=== PATIENT | male | born 1965 | race Caucasian/White ===

== ENCOUNTER 2018-06-26 21:40 | Inpatient (IN) ==
[2018-06-26] MEDS ORDERED: dilTIAZem Inj 125 MG in Sodium Chlor 0.9% Inj 100 ML IV.CONT PRN (22:08)
--- NOTE | 2018-06-26 22:57 | P.HPCC ---
History of Present Illness Service: Critical Care Medicine Primary Care Physician: No Primary Care Physician Chief Complaint: Abdominal Pain History of Present Illness: 52 yo WM with PMH of tobacco abuse, prior h/o heavy daily EtOH abuse (now in remission), polysubstance abuse (methamphetamine last snorted 06/23, occasional cocaine abuse, ongoing marijuana abuse), COPD who is transferred from [facility] due to large infrarenal abdominal aortic aneurysm. He presented to [facility] the morning of 06/26/18 complaining of abdominal pain and shortness of breath. He denies prior knowledge or imaging of AAA. He states he has experienced "bloating" and early satiety for ~3weeks. Since Saturday 06/23 , he has had abdominal pain in midabdomen, waxing and waning in severity up to . Denies nausea, vomiting, diarrhea. Pain is improved with eating, burping, or after having a BM. His last BM was 6 am this morning and was a normal formed stool with no melena or BRBR. He denies flank pain or hematuria. Complains of chronic low back pain over lumbar spine without acute change. He has had productive cough for one month, no fever or chills. He has had SOB for the last 2 days with orthopnea that has interfered with his sleep. Denies CP. He was noted to be in A fib RVR with rate in the 130s at outside hospital and was started on cardizem drip and is now in rate-controlled atrial fib. He was also treated for COPD exacerbation with nebs and Solumedrol and states his SOB has resolved. He denies prior cardiac history and has never had ischemic workup. Ultrasound at outside hospital showed normal liver, spleen, pancreas and kidneys. No gallstones or CBD dilatation. There is a large abdominal aneurysm 6.[address] abdomen and pelvis demonstrated infrarenal aneurysm 7.2 x 7.5 x 10 cm with mural thrombus. Serial troponins at outside hospital were 0.04 x3 (their lab upper limit of normal is 0.03). I do not see a formal echo report but there is discussion of low normal left systolic function, mild biatrial enlargement, mild to moderate MR, mild TR with moderate pulmonary hypertension. Sodium 140, potassium 4.7, bicarb 26, BUN 17, creatinine 0.77, glucose 120. Magnesium 1.9. AST and ALT are mildly elevated at 44, alk phos 133. Total bilirubin is normal. Coags are normal with INR 1.1. Urine drug screen is positive for amphetamines and THC. White blood cell count is 9.6, hemoglobin 14.7, platelet 206. Chest x-ray demonstrates cardiomegaly but no infiltrate. Inpatient Certification: I certify that the inpatient services were ordered in accordance with Medicare regulations governing the order. This includes certification that hospital inpatient services are reasonable and necessary and in the case of services not specified as inpatient-only under 42 CFR 419.22(n), that they are appropriately provided as inpatient services in accordance to with the 2-midnight benchmark under 43 CFR 412.3(e) Review of Systems All other systems reviewed negative except as stated in HPI [facility] - History History Provided By: Patient - Medical History Medical History: Medical History (Last Updated 06/27/18 @ 00:48 by Gail Bailey MD) COPD (chronic obstructive pulmonary disease) History of ETOH abuse Marijuana abuse Methamphetamine abuse Overweight (BMI 25.0-29.9) Tobacco abuse - Surgical History Surgical History: Surgical History (Last Updated 06/27/18 @ 00:48 by Gail Bailey MD) No history of previous surgery - Family History Family History: Family History (Last Updated 06/27/18 @ 00:49 by Gail Bailey MD) Other No significant family history - Tobacco History Tobacco Use In Past 30 Days: Yes Smoking Status: Current every day smoker Tobacco Type: Cigarettes Packs Per Day: 1 years: 40 - Alcohol History How Often Do You Have a Drink Containing Alcohol: 2 to 4 times a month - Substance Use History Substance History: Active Abuse - Substance Use Type Methamphetamine Type: crystal Status: Active Route Used: Inhalation Reason for Use: Increase Energy Level Marijuana Status: Active Medications and Allergies Active Medications: Active Medications Diltiazem HCl 125 mg/ Sodium (Chloride) 125 mls @ 5 mls/hr IV.CONT TITRATE PRN ; Protocol PRN Reason: Per Protocol Allergies Allergy/AdvReac Type Severity Reaction Status Date / Time No Known Allergies Allergy Unverified 06/26/18 22:08 Results - Labs CBC & Chem 7: 06/27/18 01:00 06/27/18 01:00 Exam Vital signs: Intake & Output 10/01/0806/26/18 06/27/18 06:59 18:59 06:59 Weight 91.4 kg Other: Weight On Admission 91.4 kg Narrative: GENERAL: Well-nourished, well-developed patient laying in ISC bed. SKIN: Warm and dry, well perfused. ~1cm ulceration right upper thigh, pt reports welding burn. Granulating with no exudate. HEAD: Atraumatic. Normocephalic. EYES: Pupils equal and round, 3mm reactive. No scleral icterus. No injection or drainage. ENT: No nasal bleeding or discharge. Mucous membranes pink and moist. NECK: Trachea midline. No JVD. CARDIOVASCULAR: irregularly irregular, unable to appreciate murmur, rub, gallop. RESPIRATORY: No accessory muscle use. Clear to auscultation. Breath sounds equal bilaterally. On 2 L NC. GASTROINTESTINAL: Abdomen soft, tender midline with pulsation, also tender mid right and left abdomen. No rebound or guarding. No CVAT. MUSCULOSKELETAL: Extremities without clubbing, cyanosis, or edema. Palpable and equal femoral, DP, [employer] pulses bilaterally. NEUROLOGICAL: Awake and alert, oriented x3. No obvious cranial nerve deficits. Motor grossly within normal limits. Normal speech. Caprini VTE Risk Assessment Caprini VTE Risk Assessment: Moderate/High Risk (score >= 2) Caprini Risk Assessment Model: Point Value = 1 Point Value = 2 Point Value = 3 Point Value = 5 Age 41-60 Minor surgery BMI > 25 kg/m2 Swollen legs Varicose veins or History of unexplained or recurrent spontaneous Oral contraceptives or hormone replacement Sepsis (< 1 month) Serious lung disease, including pneumonia (< 1 month) Abnormal pulmonary function Acute myocardial infarction Congestive heart failure (< 1 month) History of inflammatory bowel disease Medical patient at bed rest Age 61-74 Arthroscopic surgery Major open surgery (> 45 min) Laparoscopic surgery (> 45 min) Malignancy Confined to bed (> 72 hours) Immobilizing plaster cast Central venous access Age >= 75 History of VTE Family history of VTE Factor V Leiden Prothrombin [id number] Lupus anticoagulant Anticardiolipin antibodies Elevated serum homocysteine Heparin-induced thrombocytopenia Other congenital or acquired thrombophilia Stroke (< 1 month) Elective arthroplasty Hip, pelvis, or leg fracture Acute spinal cord injury (< 1 month) Prophylaxis Regimen: Total Risk Factor Score Risk Level Prophylaxis Regimen 0-1 Low Early ambulation 2 Moderate Order ONE of the following: *Sequential Compression Device (SCD) *Heparin 5000 units SQ BID 3-4 Higher Order ONE of the following medications: *Heparin 5000 units SQ TID *Enoxaparin/Lovenox 40 mg SQ daily (WT < 150 kg, CrCl > 30 mL/min) *Enoxaparin/Lovenox 30 mg SQ daily (WT < 150 kg, CrCl > 10-29 mL/min) *Enoxaparin/Lovenox 30 mg SQ BID (WT < 150 kg, CrCl > 30 mL/min) AND/OR *Sequential Compression Device (SCD) 5 or more Highest Order ONE of the following medications: *Heparin 5000 units SQ TID (Preferred with Epidurals) *Enoxaparin/Lovenox 40 mg SQ daily (WT < 150 kg, CrCl > 30 mL/min) *Enoxaparin/Lovenox 30 mg SQ daily (WT < 150 kg, CrCl > 10-29 mL/min) *Enoxaparin/Lovenox 30 mg SQ BID (WT < 150 kg, CrCl > 30 mL/min) AND *Sequential Compression Device (SCD) Assessment and Plan - Assessment and Plan Plan: NEURO: Pain, acute and chronic Lortab prn pain. Morphine prn breakthrough pain. Polysubstance abuse Hx EtOH abuse, no longer daily drinker Thiamine 100 mg daily. RESP: COPD Tobacco abuse Patient states COPD was diagnosed during a work physical. Never had PFTs. Tobacco and polysubstance cessation discussed in detail. Duoneb q4 hours. Albuterol q2 hours. Continue Solumedrol, reduce dose to 40 mg IV q12. CV: Atrial fibrillation, now rate controlled. Infrarenal abdominal aortic aneurysm, 7.2 x 7.5 x 10 cm with mural thrombus. No leak Atrial fibrillation currently rate controlled, cardizem 10 mg/hr. Labetalol prn SBP >130. Lovenox 80 mg subcut q12 ordered at outside hospital was placed on hold pending surgical evaluation (did not receive, will continue to hold) Obtain f/u troponin and obtain formal 2D Echo. Vascular surgery consultation for recommendations and management of aneurysm repair. GI: NPO at midnight. FEN/RENAL: Voiding. Monitor I/O. Monitor electrolytes and replace as indicated per ICU electrolyte protocol. Received IV contrast 10/4. 0.9 NaCl 50/hr. ID: Received ceftriaxone and azithromycin at outside facility. He has no infiltrate, fever or leukocytosis and is symptomatically improved following nebs and steroids so will hold of on further abx at this time. HEME: Obtain CBC. PT/INR normal outside hospital. Type and crossed 4 units. ENDO: Euglycemic. F/u TSH/free T4. PROPH: SCD for DVT prophylaxis, hold pharmacologic dvt prophylaxis pending evaluation. Protonix 40 mg IV daily for stress ulcer prophylaxis. ACCESS: PIV. Full Code Level 3 H and P
[2018-06-26] MEDS ORDERED: Bisacodyl 10 MG Supp RECTAL PRN (23:11)
[2018-06-26] MEDS ORDERED: Morphine Inj 4 MG/ML Vial IV.PUSH PRN (23:11)
[2018-06-26] MEDS ORDERED: Magnesium Oxide 400 MG Tablet PO PRN (23:19)
[2018-06-26] MEDS ORDERED: Magnesium Sulfate Inj 2 GM in Sodium Chlor 0.9% Inj 96 ML IV.SIG PRN (23:19)
[2018-06-26] MEDS ORDERED: Sodium Phosphate Inj 30 MMOL in Sodium Chlor 0.9% Inj 250 ML IV.SIG PRN (23:19)
[2018-06-26] MEDS ORDERED: Magnesium Sulfate Inj 4 GM in Sodium Chlor 0.9% Inj 92 ML IV.SIG PRN (23:19)
[2018-06-26] MEDS ORDERED: Potassium Chlor 40 mEq Premix 40 MEQ/100 ML PIGGYBACK IV.SIG PRN ×2 (23:19)
[2018-06-26] MEDS ORDERED: Potassium Chlor 20 mEq Premix 20 MEQ/100 ML PIGGYBACK IV.SIG PRN ×2 (23:19)
[2018-06-26] MEDS ORDERED: Potassium Chloride 25 MEQ Effervescent Tablet PO PRN (23:19)
[2018-06-26] MEDS ORDERED: Potassium Phosphate 500 MG Soluble Tablet PO PRN ×2 (23:19)
[2018-06-26] MEDS ORDERED: Potassium Phosphate Inj 30 MMOL in Sodium Chlor 0.9% Inj 250 ML IV.SIG PRN (23:19)
[2018-06-26] MEDS ORDERED: Labetalol HCl Inj 100 MG/20 ML Vial IV.PUSH PRN (23:38)
[2018-06-27 01:14] LABS: Hematocrit 42.5 % (39.0-51.0); Hemoglobin 14.5 gm/dL (13.0-17.0); Mean Corpuscular HGB Conc 34.2 % (32.0-36.0); Mean Corpuscular Hemoglobin 28.5 pg (27.0-34.0); Mean Corpuscular Volume 83.5 fL (80.0-100.0); Mean Platelet Volume 7.8 fL (7.0-11.0); Platelet Count 203 th/mm3 (150-450); Red Blood Count 5.09 mil/mm3 (4.50-5.90); Red Cell Distribution Width 14.2 % (11.6-17.2); White Blood Count 8.2 th/mm3 (4.0-11.0)
[2018-06-27 01:49] LABS: Alanine Aminotransferase 54 U/L (12-78); Albumin 3.1 g/dL (3.4-5.0); Anion Gap 11 meq/L (5-15); Aspartate Aminotransferase 30 U/L (15-37); Blood Urea Nitrogen 18 mg/dL (7-18); Calcium 8.4 mg/dL (8.5-10.1); Carbon Dioxide 25.2 meq/L (21.0-32.0); Chloride 104 meq/L (98-107); Glomerular Filtration Rate 77 mL/min (>89); Glucose,Random 245 mg/dL (74-106); Magnesium 1.8 mg/dL (1.5-2.5); Phosphorus 2.7 mg/dL (2.5-4.9); Sodium 140 meq/L (136-145)
[2018-06-27 01:59] LABS: Alkaline Phosphatase 132 U/L (45-117); Troponin I 0.49 ng/mL (0.02-0.05)
[2018-06-27 02:07] LABS: Creatine Kinase 78 U/L (39-308)
[2018-06-27] MEDS ORDERED: Dextrose 50% in Water 50 ML Vial IV.PUSH PRN (03:20)
[2018-06-27 03:50] LABS: Activated Partial Thrombo Time 27.2 sec (24.3-30.1); INR 1.2 Ratio; Prothrombin Time 11.7 sec (9.8-11.6)
[2018-06-27] MEDS ORDERED: Chlorhexidine Gluconate 2% 1 Pack (2 Cloths) TOPICAL PRN (04:00)
[2018-06-27 04:02] LABS: Chol/HDL Ratio 5.14 Ratio; Free T4 (Free Thyroxine) 1.02 ng/dL (0.76-1.46); HDL Cholesterol 34.4 mg/dL (40.0-60.0); Troponin I 0.43 ng/mL (0.02-0.05)
--- NOTE | 2018-06-27 04:30 | XR ---
EXAM DATE: 06/27/2018 12:00 AM EDT AGE/SEX: 52 years / Male INDICATIONS: Respiratory disease. CLINICAL DATA: This is the patient's initial encounter. Patient reports that signs and symptoms have been present for 1 day and indicates a pain score of 0/10. MEDICAL/SURGICAL HISTORY: None. None. COMPARISON: No prior exams available for comparison. FINDINGS: The cardiac silhouette is enlarged in transverse diameter. The lungs are free of acute parenchymal op acity. No effusions are identified. CONCLUSION: Cardiomegaly. No acute pulmonary disease. Electronically signed by: Kimo Medel MD 06/27/2018 4:29 AM EDT
[2018-06-27] MEDS: Chlorhexidine Gluconate 2% 1 Pack (2 Cloths) TOPICAL SCH (06:28)
--- NOTE | 2018-06-27 06:41 | P.PNCC ---
Subjective Subjective Remarks/Hospital Course: 52 yo WM with PMH of tobacco abuse, prior h/o heavy daily EtOH abuse (now in remission), polysubstance abuse (methamphetamine last snorted 06/23, occasional cocaine abuse, ongoing marijuana abuse), COPD who is transferred from [facility] due to large infrarenal abdominal aortic aneurysm. He presented to [facility] the morning of 06/26/18 complaining of abdominal pain and shortness of breath. He denies prior knowledge or imaging of AAA. He states he has experienced "bloating" and early satiety for ~3weeks. Since Saturday 06/23 , he has had abdominal pain in midabdomen, waxing and waning in severity up to . Denies nausea, vomiting, diarrhea. Pain is improved with eating, burping, or after having a BM. His last BM was 6 am this morning and was a normal formed stool with no melena or BRBR. He denies flank pain or hematuria. Complains of chronic low back pain over lumbar spine without acute change. He has had productive cough for one month, no fever or chills. He has had SOB for the last 2 days with orthopnea that has interfered with his sleep. Denies CP. He was noted to be in A fib RVR with rate in the 130s at outside hospital and was started on cardizem drip and is now in rate-controlled atrial fib. He was also treated for COPD exacerbation with nebs and Solumedrol and states his SOB has resolved. He denies prior cardiac history and has never had ischemic workup. Ultrasound at outside hospital showed normal liver, spleen, pancreas and kidneys. No gallstones or CBD dilatation. There is a large abdominal aneurysm 6.[address] abdomen and pelvis demonstrated infrarenal aneurysm 7.2 x 7.5 x 10 cm with mural thrombus. Serial troponins at outside hospital were 0.04 x3 (their lab upper limit of normal is 0.03). I do not see a formal echo report but there is discussion of low normal left systolic function, mild biatrial enlargement, mild to moderate MR, mild TR with moderate pulmonary hypertension. Sodium 140, potassium 4.7, bicarb 26, BUN 17, creatinine 0.77, glucose 120. Magnesium 1.9. AST and ALT are mildly elevated at 44, alk phos 133. Total bilirubin is normal. Coags are normal with INR 1.1. Urine drug screen is positive for amphetamines and THC. White blood cell count is 9.6, hemoglobin 14.7, platelet 206. Chest x-ray demonstrates cardiomegaly but no infiltrate. SUBJECTIVE: 06/27: Currently resting in bed in no acute distress on 2 L nasal cannula. Heart rate controlled on diltiazem drip at 10 mg an hour. Denies chest pain, shortness of breath or abdominal pain. Currently has a nicotine patch on from his outside facility. Requesting diet to be advanced. Objective Vital Signs / I&O: Vital Signs 06/27/18 00:00 06/27/18 01:00 06/27/18 02:00 Temperature 98.9 F Pulse Rate 96 H 88 88 Respiratory Rate 26 H 20 20 Blood Pressure 119/78 118/74 118/79 Pulse Oximetry 93 L 94 L 92 L 06/27/18 03:00 06/27/18 04:00 06/27/18 04:15 Temperature 98.9 F Pulse Rate 87 87 72 Respiratory Rate 20 18 18 Blood Pressure 121/75 128/76 Pulse Oximetry 93 L 98 95 06/27/18 05:00 06/27/18 06:00 Temperature Pulse Rate 76 80 Respiratory Rate 18 18 Blood Pressure 130/75 116/73 Pulse Oximetry Intake & Output 06/26/18 06/26/18 06/27/18 06:59 18:59 06:59 Intake Total 240 / 240 Output Total 600 / 600 Balance -360 / -360 Weight 91.4 kg Intake: Oral 240 / 240 Output: Urine 600 / 600 Other: Weight On Admission 91.4 kg Result Diagrams: 06/27/18 01:00 06/27/18 01:00 Imaging: Chest X-Ray 06/27/18 00:00 CONCLUSION: Cardiomegaly. No acute pulmonary disease. Objective Remarks: GENERAL: This 52-year-old male currently resting in bed in no acute distress SKIN: Warm and dry. Noted old less than 1 inch circumference granulation burn right thigh without erythema or exudate HEAD: Atraumatic. Normocephalic. EYES: Pupils equal and round about 2 mm bilaterally and reactive. No scleral icterus. No injection or drainage. ENT: No nasal bleeding or discharge. Mucous membranes pink and moist. NECK: Trachea midline. No JVD. CARDIOVASCULAR: IRR. S1, S2 no S4. Without murmur RESPIRATORY: No accessory muscle use. Diminished breath sounds. Positive end expiratory wheeze. No rhonchi or rales GASTROINTESTINAL: Abdomen soft, nondistended. Vaguely tender to palpation mid epigastric region. Umbilicus midline. Questionable palpable. MUSCULOSKELETAL: Extremities without peripheral edema. No obvious deformities. Dorsalis pedis and posterior tibialis are palpable bilaterally NEUROLOGICAL: Awake and alert. No obvious cranial nerve deficits. Motor grossly within normal limits. Five out of 5 muscle strength in the arms and legs. Normal speech. PSYCHIATRIC: Appropriate mood and affect; insight and judgment normal. Assessment and Plan - Assessment and Plan Plan: NEURO/PSYCH: Pain- acute and chronic Hx EtOH abuse, no longer daily drinker but does drink once a month. THC use History of recent methamphetamine use Acetaminophen 650 mg by mouth every 6 hours as needed fever Hydrocodone/acetaminophen 5/324 tablet every 4 hours as needed pain 1 through 5 Morphine sulfate 2 mg IV every 2 hours as needed pain 6 - 10 Thiamine 100 mg daily. Multivitamin 1 tablet daily. Folic acid 1 mg daily See below for education on cessation of methamphetamine and THC and tobacco and alcohol RESP: COPD -likely diagnosis Ongoing tobacco abuse Patient states COPD was diagnosed during a work physical. No formal diagnosis by poorly function test. Will order today Nasal cannula to maintain saturations greater than equal to 92% Incentive spirometry while awake Follow-up on chest x-ray. Albuterol/ipratropium aerosols every 4 hours with albuterol aerosols every 2 hours as needed for dyspnea Methylprednisolone succinate 40 mg IV every 12 hours Tobacco and polysubstance cessation discussed in detail again this a.m. 06/27. CV: New onset atrial fibrillation, now rate controlled. Asymptomatic infrarenal abdominal aortic aneurysm, 7.2 x 7.5 x 10 cm with lumen 4 x 3.4 cm with mural thrombus. No leak Elevated troponin likely type II demand ischemia Hyperlipidemia with elevated LDL Moderate pulmonary hypertension Moderate MR Atrial fibrillation currently rate controlled, diltiazem 10 mg/hr. Labetalol and enalaprilat prn SBP >130. Enoxaparin 80 mg subcut q12 ordered at outside hospital was placed on hold pending surgical evaluation (did not receive, will continue to hold) Will discuss with vascular surgery heparin drip with mural thrombus to prevent distal embolization and underlying atrial fibrillation and aspirin in light of elevated troponin Obtain f/u troponin -trending downward and obtain formal 2D Echo -report from outside hospital ejection fraction 50% with moderate MR and moderate pulmonary hypertension but no official documentation. Vascular surgery consultation for recommendations and management of aneurysm repair. Cardiology consultation for recommendations and management. Initiate on pravastatin 40 mg by mouth daily. GI: Hypoalbuminemia Elevated total bilirubin Elevated alkaline phosphatase NPO except for medication Pantoprazole for GI prophylaxis Docusate sodium/senna 1 tablet twice daily for bowel regimen Check lipase and amylase. Liver function tests within normal limits Bilirubin components to be checked as well FEN/RENAL/: Voiding. No indication for Curtis catheter Accurate I's and O's Monitor urine output Currently on normal saline at 50 cc an hour while n.p.o. Replace electrolytes as clinically indicated per ICU likely protocol ID: Received ceftriaxone and azithromycin at outside facility. Currently off all antibiotics. Check sputum sample and influenza a and B HEME: Monitor CBC daily. Follow trends. Type and crossed 4 units. ENDO: Subclinical hypothyroidism Hyperglycemia Hemoglobin A1c pending Continue sliding scale insulin aspart insulin every 6 hours low protocol to maintain euglycemia Low TSH, Nl T4, and T3. Reassess in 4-6 weeks. PROPH: SCD for DVT prophylaxis, hold pharmacologic dvt prophylaxis pending evaluation. Pantoprazole 40 mg daily for stress ulcer prophylaxis. ACCESS: PIV. His arterial line Full Code Level 2 followup. Code Status: Full code
[2018-06-27] MEDS ORDERED: Magnesium Sulfate Inj 2 GM in Sodium Chlor 0.9% Inj 96 ML IV.SIG ONE (07:00)
[2018-06-27] MEDS: Sod Chloride 0.9% Inj 1,000 ML IV.CONT SCH ×2 (07:00→23:43)
[2018-06-27] MEDS ORDERED: Morphine Inj 4 MG/ML Vial IV.PUSH PRN (07:31)
[2018-06-27] MEDS ORDERED: Insulin NovoLOG Aspart Correctional Sugar Inj SQ SCH (08:00)
[2018-06-27] MEDS ORDERED: Pantoprazole Inj 40 MG Vial IV.PUSH SCH (09:00)
[2018-06-27] MEDS: Thiamine Inj 100 MG in Sodium Chlor 0.9% Inj 100 ML IV.SIG SCH ×2 (09:07→23:43)
[2018-06-27] MEDS: MethylPREDNISolone Sod Succinate Inj 40 MG/ML Vial IV.PUSH SCH ×2 (09:08→20:10)
[2018-06-27] MEDS: Senna/Docusate Sodium 8.6/50 MG Tablet PO SCH ×2 (09:08→20:10)
[2018-06-27] MEDS: Folic Acid 1 MG Tablet PO SCH (09:08)
--- NOTE | 2018-06-27 09:09 | MB ---
cc: Sebastian Kenneyd MD DATE: 06/27/2018 REASON FOR CONSULTATION: Atrial fibrillation. HISTORY OF PRESENT ILLNESS: The patient is a pleasant 52-year-old white male with no major past medical history, history of tobacco and polysubstance abuse, who was transferred from [facility] for further treatment of a very large infrarenal abdominal aortic aneurysm, which apparently measured [address]. The patient initially presented to [facility] with a 2-week history of early satiety and bloating. Over the last few days, he has had a very uncomfortable feeling, unable to lie still at night. Four days ago, he developed progressively worsening shortness of breath with mild to moderate exertion. During this time, he also had possible orthopnea. He denies pedal edema, chest pain, lightheadedness, syncope, near-syncope, palpitations. PAST MEDICAL HISTORY: None. CURRENT CARDIAC MEDICATIONS: Cardizem drip, pravastatin ALLERGIES: NO KNOWN DRUG ALLERGIES. FAMILY HISTORY: There is no significant family history of early myocardial infarction. SOCIAL HISTORY: The patient smokes about a pack of cigarettes per day. He has a prior history of alcohol abuse. He occasionally abuses crystal meth, marijuana, cocaine. REVIEW OF SYSTEMS: As in the history of present illness, otherwise negative or noncontributory. He also denies headache, visual changes, melena, bright red blood per rectum, fevers. Occasionally, he has been experiencing dyspepsia. PHYSICAL EXAMINATION: VITAL SIGNS: His blood pressure is 116/73 with a pulse of 80, respirations 18. GENERAL: He is a well-developed, well-nourished white male, in no acute distress. NECK: Jugular venous pressure is normal. Carotid pulses are 2+ bilaterally and without bruits. CHEST: Reveals clear lung díaz. CARDIAC: He has an irregularly irregular rhythm without S3 or murmur. ABDOMEN: He has a soft, nontender abdomen. Bowel sounds are present. There is no definite hepatosplenomegaly. EXTREMITIES: Reveals no clubbing, cyanosis or edema. DIAGNOSTIC DATA: Chest x-ray shows no acute disease. Laboratory data includes normal CBC, normal basic metabolic profile, except for random glucose of 245. Troponin 0.49. CK 78. Total cholesterol 177, LDL 129, HDL 34, triglycerides 70. IMPRESSION: Newly diagnosed atrial fibrillation in this 52-year-old white male with previously no major past medical history, now transferred from [facility] for further treatment of a very large infrarenal abdominal aortic aneurysm. At this time, he remains in atrial fibrillation with controlled heart rate on intravenous Cardizem. Overall, there is no definite evidence for acute coronary syndrome or pulmonary embolism. Slight elevation in troponin may be due to the dysrhythmia. CK is negative for myocardial infarction. EKG is pending. He has had no angina symptoms. With respect to his thromboembolic risk, it appears to be overall low. Reportedly, his left ventricular function was within normal limits by echo done at [facility]. RECOMMENDATIONS: 1. Continue intravenous Cardizem, consider changing to oral administration. 2. When possible, would initiate aspirin therapy. 3. Await vascular surgery consultation from Dr. Hanna. MD CHERISE Murray/lilian , 08:07 AM , 08:15 AM [id number]
--- NOTE | 2018-06-27 10:40 | ECHRPT ---
Indication: AFIB AND AFLUTTER CONCLUSIONS Normal left ventricular size. Wall thickness is normal. Normal wall motion. The left ventricular systolic function is normal with an estimated ejection fraction in the range of 50-55%. The left atrial size is mildly dilated. Trace mitral valve regurgitation. There is mild tricuspid valve regurgitation. The estimated pulmonary arterial pressure is 40 mmHg. BP: / HR: Rhythm: MEASUREMENTS (Male / Female) Normal Values Technical Quality: 2D ECHO LV Diastolic Diameter PLAX 4.8 cm 4.2 - 5.9 / 3.9 - 5.3 cm LV Systolic Diameter PLAX 3.9 cm IVS Diastolic Thickness 1.1 cm 0.6 - 1.0 / 0.6 - 0.9 cm LVPW Diastolic Thickness 1.0 cm 0.6 - 1.0 / 0.6 - 0.9 cm LV Relative Wall Thickness 0.5 RV Internal Dim ED PLAX 2.8 cm LVOT Diameter 1.9 cm Aortic Root Diameter 2.9 cm LA Systolic Diameter LX 3.4 cm 3.0 - 4.0 / 2.7 - 3.8 cm LV Ejection Fraction MOD BP 41.3 % >= 55 % LV Ejection Fraction MOD 4C 47.0 % LV Ejection Fraction 4C AL 50.4 % LV Ejection Fraction MOD 2C 36.4 % LV Ejection Fraction 2C AL 39.1 % M-MODE Aortic Root Diameter MM 3.0 cm LA Systolic Diameter MM 4.6 cm LA Ao Ratio MM 1.5 AV Cusp Separation MM 1.1 cm DOPPLER AV Peak Velocity 114.5 cm/s AV Peak Gradient 5.2 mmHg LVOT Peak Velocity 95.3 cm/s LVOT Peak Gradient 3.6 mmHg AV Area Cont Eq pk 2.4 cm Mitral E Point Velocity 113.0 cm/s LV E' Lateral Velocity 9.1 cm/s Mitral E to LV E' Lateral Ratio 12.5 LV E' Septal Velocity 8.5 cm/s Mitral E to LV E' Septal Ratio 13.3 TR Peak Velocity 274.0 cm/s TR Peak Gradient 30.0 mmHg Right Atrial Pressure 10.0 mmHg Pulmonary Artery Systolic Pressu 40.0 mmHg Right Ventricular Systolic Press 40.0 mmHg PV Peak Velocity 93.6 cm/s PV Peak Gradient 3.5 mmHg FINDINGS LEFT VENTRICLE Normal left ventricular size. Wall thickness is normal. Normal wall motion. The left ventricular systolic function is normal with an estimated ejection fraction in the range of 50-55%. RIGHT VENTRICLE Normal right ventricular size and systolic function. LEFT ATRIUM The left atrial size is mildly dilated. RIGHT ATRIUM The right atrial size is normal. ATRIAL SEPTUM Normal atrial septal thickness without atrial level shunting by limited color doppler interrogation. AORTA The aortic root and proximal ascending aorta are normal in size on limited imaging. MITRAL VALVE Trace mitral valve regurgitation. AORTIC VALVE Trileaflet aortic valve. No aortic valve stenosis or regurgitation. TRICUSPID VALVE There is mild tricuspid valve regurgitation. The estimated pulmonary arterial pressure is 40 mmHg. PULMONARY VALVE No pulmonary valve regurgitation or stenosis. VESSELS The inferior vena cava is normal in size. PERICARDIUM No pericardial effusion. Sebastian Kennedy MD (Electronically Signed) Final Date:27 June 2018 10:39
[2018-06-27] MEDS: Budesonide-Formoterol 160/4.5 MCG 6 GM Inhaler INH SCH ×2 (11:08→20:10)
[2018-06-27] MEDS: Insulin NovoLOG Aspart Correctional Sugar Inj SQ SCH ×3 (11:44→23:44)
--- NOTE | 2018-06-27 11:47 | ECG ---
Date Performed: 06/27/2018 Time Performed: 03:52:34 PTAGE: 52 years EKG: Atrial fibrillation Incomplete RBBB Septal and lateral ST-T changes are nonspecific Abnorma l ECG NO PREVIOUS TRACING DOCTOR: Kimo Clarke Interpretating Date/Time 06/27/2018 11:44:54
--- NOTE | 2018-06-27 11:58 | ECG ---
Date Performed: 06/27/2018 Time Performed: 08:02:38 PTAGE: 52 years EKG: Atrial fibrillation Incomplete RBBB Inferior/lateral T wave changes are nonspecific Abnorma l ECG PREVIOUS TRACING : 06/27/2018 03.52 Since the previous tracing, no significant change noted DOCTOR: Kimo Clarke Interpretating Date/Time 06/27/2018 11:57:48
[2018-06-27] MEDS: Labetalol HCl Inj 100 MG/20 ML Vial IV.PUSH PRN (12:08)
--- NOTE | 2018-06-27 13:43 | P.CONVS ---
History of Present Illness Service: Vascular Surgery Consult date: 06/27/18 Requesting Physician: Papo Ballesteros Primary Care Provider: No Primary Care Physician Chief Complaint: Abdominal Pain History of Present Illness: 52 yo male with abdominal pain and SOB, presented to OSH and found to be in a- fib/RVR. Routine work-up included CT that showed a 7cm AAA about which he had no prior knowledge. At present, he endorses mild abdominal pain with deep palpation. + hungry. Review of Systems Constitutional: Denies chills, Denies fever(s) Cardiovascular: Reports shortness of breath, Denies chest pain Respiratory: Reports shortness of breath PMFSH - History History Provided By: Patient - Medical History Medical History: Medical History (Last Reviewed 06/27/18 @ 13:39 by Brian Hanna MD) COPD (chronic obstructive pulmonary disease) History of ETOH abuse Marijuana abuse Methamphetamine abuse Overweight (BMI 25.0-29.9) Tobacco abuse - Surgical History Surgical History: Surgical History (Last Reviewed 06/27/18 @ 13:39 by Brian Hanna MD) No history of previous surgery - Family History Family History: Family History (Last Updated 06/27/18 @ 00:49 by Gail Bailey MD) Other No significant family history - Tobacco History Second Hand Smoke Exposure: Yes Tobacco Use In Past 30 Days: Yes Smoking Status: Current every day smoker Tobacco Type: Cigarettes Packs Per Day: 1 years: 40 - Alcohol History How Often Do You Have a Drink Containing Alcohol: 2 to 4 times a month - Substance Use History Substance History: Active Abuse - Substance Use Type Methamphetamine Type: crystal Status: Active Route Used: Inhalation Reason for Use: Increase Energy Level Marijuana Type: amphetamines/marijuana Status: Active Reason for Use: Calm Down 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 Medications and Allergies Active Medications: Active Medications Acetaminophen (Tylenol) 650 mg PO Q6H PRN PRN Reason: Fever >100f Hydrocodone Bitart/Acetaminophen ([place] 5/325) 1 tab PO Q4H PRN PRN Reason: Pain 1 through 5 Al Hydroxide/Mg Hydroxide (Milk Of Magnesia Liq) 30 ml PO Q12H PRN PRN Reason: Mild Constipation Albuterol (Albuterol Neb (Prn)) 2.5 mg NEB Q2HR NEB PRN PRN Reason: SHORTNESS OF BREATH/WHEEZING Albuterol (Duoneb Neb ([facility])) 1 ampul NEB Q4HR NEB [facility] Last Admin: 06/27/18 12:21 Dose: Not Given Bacitracin (Baciguent Oint) 1 applicatio TOPICAL BID [facility] Last Admin: 06/27/18 09:07 Dose: 1 applicatio Bisacodyl (Dulcolax Supp) 10 mg RECTAL DAILY PRN PRN Reason: SEVERE CONSITIPATION Budesonide/Formoterol Fumarate (Symbicort 160/4.5 Mcg Inh) 2 puff INH BID [facility] Last Admin: 06/27/18 11:08 Dose: Not Given Chlorhexidine Gluconate (Chlorhexidine 2% Cloth) 3 pack TOPICAL DAILY@0400 [facility] Stop: 07/02/18 03:59 Last Admin: 06/27/18 06:28 Dose: Not Given Chlorhexidine Gluconate (Chlorhexidine 2% Cloth) 3 pack TOPICAL DAILY@0400 PRN PRN Reason: Extra cloth needed Stop: 07/02/18 03:59 Dextrose (D50w Vial) 50 ml IV.PUSH UNSCH PRN PRN Reason: PER HYPOGLYCEMIA PROTOCOL Enalaprilat (Vasotec Inj) 2.5 mg IV.PUSH Q6H PRN PRN Reason: SBP > 130 Folic Acid (Folic Acid) 1 mg PO DAILY [facility] Last Admin: 06/27/18 09:08 Dose: 1 mg Glucagon (Glucagon Inj) 1 mg OTHER PRN PRN PRN Reason: for Hypoglycemia Protocol Diltiazem HCl 125 mg/ Sodium (Chloride) 125 mls @ 5 mls/hr IV.CONT TITRATE PRN ; Protocol PRN Reason: Per Protocol Last Admin: 06/27/18 11:22 Dose: 10 mg/hr, 10 mls/hr Sodium Chloride (Ns Inj) 1,000 mls @ 50 mls/hr IV.CONT .Q20H [facility] Last Admin: 06/27/18 07:00 Dose: 50 mls/hr Magnesium Sulfate 2 gm/ Sodium (Chloride) 100 mls @ 50 mls/hr IV.SIG UNSCH PRN PRN Reason: For Magnesium 1.2 - 1.6 mg/dL Potassium Chloride (Kcl 20 Meq Premix Inj) 20 meq in 100 mls @ 50 mls/hr IV.SIG Q2H PRN PRN Reason: For Potassium 3.3 - 3.5 mEq/L Potassium Chloride (Kcl 40 Meq Premix Inj) 40 meq in 100 mls @ 25 mls/hr IV.SIG UNSCH PRN PRN Reason: For Potassium 3.3 - 3.5 mEq/L Potassium Chloride (Kcl 20 Meq Premix Inj) 20 meq in 100 mls @ 50 mls/hr IV.SIG Q2H PRN PRN Reason: For Potassium 2.8 - 3.2 mEq/L Potassium Phosphate 30 mmol/ (Sodium Chloride) 260 mls @ 42 mls/hr IV.SIG UNSCH PRN PRN Reason: SEE LABEL COMMENTS Sodium Phosphate 30 mmol/ (Sodium Chloride) 260 mls @ 42 mls/hr IV.SIG UNSCH PRN PRN Reason: For Phosphorus < 2.5 mg/dL Potassium Chloride (Kcl 40 Meq Premix Inj) 40 meq in 100 mls @ 25 mls/hr IV.SIG Q2H PRN PRN Reason: For Potassium 2.8 - 3.2 mEq/L Magnesium Sulfate 4 gm/ Sodium (Chloride) 100 mls @ 50 mls/hr IV.SIG UNSCH PRN PRN Reason: For Magnesium 0.9 - 1.1 mg/dL Thiamine HCl 100 mg/ Sodium (Chloride) 101 mls @ 100 mls/hr IV.SIG Q24H [facility] Last Infusion: 06/27/18 11:01 Dose: Infused Insulin Aspart (Novolog Insulin Correctional Sugar Inj) 0 unit SQ Q6HR [facility]; Protocol Last Admin: 06/27/18 11:44 Dose: Not Given Labetalol HCl (Trandate Inj) 10 mg IV.PUSH Q1H PRN PRN Reason: SBP >130 Last Admin: 06/27/18 12:08 Dose: 10 mg Lactulose (Lactulose Liq) 30 ml PO DAILY PRN PRN Reason: SEVERE CONSITIPATION Magnesium Oxide (Mag-Ox) 800 mg PO UNSCH PRN PRN Reason: For Magnesium 1.2 - 1.6 mg/dL Methylprednisolone Sodium Succinate (Solumedrol Inj) 40 mg IV.PUSH Q12HR [facility] Last Admin: 06/27/18 09:08 Dose: 40 mg Morphine Sulfate (Morphine Inj) 2 mg IV.PUSH Q2H PRN PRN Reason: Pain 6 through 10 Multivitamins (Theragran) 1 tab PO DAILY [facility] Last Admin: 06/27/18 09:08 Dose: 1 tab Ondansetron HCl (Zofran Inj) 4 mg IV.PUSH Q6H PRN PRN Reason: NAUSEA OR VOMITING Pantoprazole Sodium (Protonix) 40 mg PO DAILY [facility] Last Admin: 06/27/18 09:08 Dose: 40 mg Potassium Bicarb/Potassium Chloride (K-Lyte Cl Eff) 50 meq PO UNSCH PRN PRN Reason: For Potassium 3.3 - 3.5 mEq/L Potassium Phosphate (K-Phos Original) 2,000 mg PO Q4H PRN PRN Reason: Phosphorus Less Than 2.5 mg/dL Potassium Phosphate (K-Phos Original) 2,000 mg PO UNSCH PRN PRN Reason: SEE LABEL COMMENTS Pravastatin Sodium (Pravachol) 40 mg PO DAILY [facility] Last Admin: 06/27/18 09:08 Dose: 40 mg Senna/Docusate Sodium (Tish-Colace) 1 tab PO BID [facility] Last Admin: 06/27/18 09:08 Dose: 1 tab Sennosides (Senokot) 17.2 mg PO Q12H PRN PRN Reason: Moderate Constipation Sodium Chloride (Ns Flush) 2 ml IV.FLUSH BID [facility] Last Admin: 06/27/18 09:08 Dose: 2 ml Sodium Chloride (Ns Flush) 2 ml IV.FLUSH PRN PRN PRN Reason: FLUSH AFTER USING IV ACCESS Allergies Allergy/AdvReac Type Severity Reaction Status Date / Time No Known Allergies Allergy Unverified 06/26/18 22:08 Physical Exam Vital Signs / I&O: Vital Signs 06/27/18 00:00 06/27/18 01:00 06/27/18 02:00 Temperature 98.9 F Pulse Rate 96 H 88 88 Respiratory Rate 26 H 20 20 Blood Pressure 119/78 118/74 118/79 Pulse Oximetry 93 L 94 L 92 L 06/27/18 03:00 06/27/18 04:00 06/27/18 04:15 Temperature 98.9 F Pulse Rate 87 87 72 Respiratory Rate 20 18 18 Blood Pressure 121/75 128/76 Pulse Oximetry 93 L 98 95 06/27/18 05:00 06/27/18 06:00 06/27/18 08:00 Temperature 98.1 F Pulse Rate 76 80 90 Respiratory Rate 18 18 18 Blood Pressure 130/75 116/73 110/67 Pulse Oximetry 94 L 06/27/18 08:23 06/27/18 08:25 06/27/18 12:00 Temperature 98.2 F Pulse Rate 74 85 Respiratory Rate 18 17 Blood Pressure 144/71 H Pulse Oximetry 94 L 95 Intake & Output 06/26/18 06/27/18 06/27/18 18:59 06:59 18:59 Intake Total 240 / 240 201 / 201 Output Total 600 / 600 Balance -360 / -360 201 / 201 Weight 91.4 kg Intake: IV 201 / 201 Magnesium Sulfate Inj 2 GM In 100 / 100 NS Inj 96 ML @ 50 mls/hr IV.SIG ONCE ONE Rx#:[id number] Thiamine Inj 100 MG In NS Inj 101 / 101 100 ML @ 100 mls/hr IV.SIG Q24H [facility] Rx#:[id number] Oral 240 / 240 Output: Urine 600 / 600 Other: Weight On Admission 91.4 kg Neuro: alert, sitting in bed HEENT: NC/AT Neck: no JVD Heart: no M Lungs: clear Abdomen: nontender to palpation Vascular: palp femoral, popliteal Laboratory Results - last 24 hr 06/26/18 06/27/18 06/27/18 22:00 01:00 01:00 WBC 8.2 RBC 5.09 Hgb 14.5 Hct 42.5 MCV 83.5 MCH 28.5 MCHC 34.2 RDW 14.2 Plt Count 203 MPV 7.8 PT INR APTT Sodium 140 Potassium 4.0 Chloride 104 Carbon Dioxide 25.2 Anion Gap 11 BUN 18 Creatinine 1.01 Estimated GFR 77 L Random Glucose 245 H Lactic Acid Calcium 8.4 L Phosphorus 2.7 Magnesium 1.8 Total Bilirubin 1.2 H Direct Bilirubin Indirect Bilirubin AST 30 ALT 54 Alkaline Phosphatase 132 H Total Creatine Kinase 78 Troponin I 0.49 H Total Protein 7.0 Albumin 3.1 L Triglycerides Cholesterol LDL Cholesterol, Calc HDL Cholesterol Cholesterol/HDL Ratio Amylase Lipase TSH Less than 0.005 L Free T4 Free T3 Nasal Screen MRSA (PCR) Not detected Blood Type Blood Type Recheck Antibody Screen 06/27/18 06/27/18 06/27/18 01:00 01:00 01:00 WBC RBC Hgb Hct MCV MCH MCHC RDW Plt Count MPV PT INR APTT Sodium Potassium Chloride Carbon Dioxide Anion Gap BUN Creatinine Estimated GFR Random Glucose Lactic Acid 1.7 Calcium Phosphorus Magnesium Total Bilirubin Direct Bilirubin Indirect Bilirubin AST ALT Alkaline Phosphatase Total Creatine Kinase Troponin I Total Protein Albumin Triglycerides Cholesterol LDL Cholesterol, Calc HDL Cholesterol Cholesterol/HDL Ratio Amylase Lipase TSH Free T4 Free T3 2.74 Nasal Screen MRSA (PCR) Blood Type A Positive Blood Type Recheck Required Antibody Screen Negative 06/27/18 06/27/18 06/27/18 03:22 03:22 10:54 WBC RBC Hgb Hct MCV MCH MCHC RDW Plt Count MPV PT 11.7 H INR 1.2 APTT 27.2 Sodium Potassium Chloride Carbon Dioxide Anion Gap BUN Creatinine Estimated GFR Random Glucose Lactic Acid Calcium Phosphorus Magnesium Total Bilirubin 0.6 Direct Bilirubin 0.2 Indirect Bilirubin 0.4 AST ALT Alkaline Phosphatase Total Creatine Kinase Troponin I 0.43 H Total Protein Albumin Triglycerides 70 Cholesterol 177 LDL Cholesterol, Calc 129 H HDL Cholesterol 34.4 L Cholesterol/HDL Ratio 5.14 Amylase 36 Lipase 54 L TSH Free T4 1.02 Free T3 Nasal Screen MRSA (PCR) Blood Type Blood Type Recheck Antibody Screen Impressions Chest X-Ray 06/27/18 00:00 CONCLUSION: Cardiomegaly. No acute pulmonary disease. 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 Need repair semi-electively, and I don't think he is endovascular candidate. Could have open juxtarenal repair. 1. Needs cardiac w/u completed for new onset afib 2. Will likely repair this hospitalization 3. ok to eat, OOB, and have prophy hep 4. 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
[2018-06-27] MEDS: Heparin - SQ 10,000 UNITS/ML Vial SQ SCH ×2 (14:26→23:42)
[2018-06-27 15:50] LABS: Hemoglobin A1c 6.1 % (4.3-6.0)
[2018-06-27] MEDS: dilTIAZem 60 MG Tablet PO SCH ×2 (17:15→20:10)
[2018-06-28] MEDS: Labetalol HCl Inj 100 MG/20 ML Vial IV.PUSH PRN ×4 (00:22→11:52)
[2018-06-28 02:52] LABS: Baso # (Auto) 0.1 th/mm3 (0.0-0.2); Baso % (Auto) 0.7 % (0.0-2.0); Hematocrit 39.6 % (39.0-51.0); Hemoglobin 13.2 gm/dL (13.0-17.0); Lymph # (Auto) 0.6 th/mm3 (1.0-4.8); Lymph % (Auto) 3.6 % (9.0-44.0); Mean Corpuscular HGB Conc 33.3 % (32.0-36.0); Mean Corpuscular Hemoglobin 28.4 pg (27.0-34.0); Mean Corpuscular Volume 85.2 fL (80.0-100.0); Mean Platelet Volume 7.6 fL (7.0-11.0); Mono # (Auto) 0.3 th/mm3 (0.0-0.9); Mono % (Auto) 1.6 % (0.0-8.0); Neut # (Auto) 16.7 th/mm3 (1.8-7.7); Neut % (Auto) 94.1 % (16.0-70.0); Platelet Count 191 th/mm3 (150-450); Red Blood Count 4.64 mil/mm3 (4.50-5.90); Red Cell Distribution Width 14.5 % (11.6-17.2); White Blood Count 17.8 th/mm3 (4.0-11.0)
[2018-06-28 03:18] LABS: Alanine Aminotransferase 39 U/L (12-78); Albumin 2.9 g/dL (3.4-5.0); Anion Gap 9 meq/L (5-15); Aspartate Aminotransferase 15 U/L (15-37); Blood Urea Nitrogen 23 mg/dL (7-18); Calcium 8.1 mg/dL (8.5-10.1); Carbon Dioxide 24.3 meq/L (21.0-32.0); Chloride 107 meq/L (98-107); Glomerular Filtration Rate Greater Than 89 mL/min (>89); Glucose,Random 153 mg/dL (74-106); Magnesium 2.2 mg/dL (1.5-2.5); Phosphorus 3.4 mg/dL (2.5-4.9); Potassium 4.4 meq/L (3.5-5.1); Sodium 140 meq/L (136-145)
[2018-06-28 03:21] LABS: Alkaline Phosphatase 123 U/L (45-117); Total Protein 6.4 g/dL (6.4-8.2)
[2018-06-28] MEDS: Chlorhexidine Gluconate 2% 1 Pack (2 Cloths) TOPICAL SCH (04:21)
[2018-06-28] MEDS: Heparin - SQ 10,000 UNITS/ML Vial SQ SCH ×2 (06:03→16:54)
[2018-06-28] MEDS: Insulin NovoLOG Aspart Correctional Sugar Inj SQ SCH ×3 (06:03→17:57)
[2018-06-28] MEDS: MethylPREDNISolone Sod Succinate Inj 40 MG/ML Vial IV.PUSH SCH ×2 (08:48→20:28)
[2018-06-28] MEDS: Folic Acid 1 MG Tablet PO SCH (08:48)
[2018-06-28] MEDS: Senna/Docusate Sodium 8.6/50 MG Tablet PO SCH ×2 (08:48→20:25)
[2018-06-28] MEDS: dilTIAZem 60 MG Tablet PO SCH ×4 (08:50→20:28)
--- NOTE | 2018-06-28 10:00 | P.PNVS ---
Subjective Subjective/Hospital Course: PT resting in bed, comfortable, no distress and no abdominal or back pain Objective Vital Signs / I&O: Vital Signs 06/27/18 12:00 06/27/18 18:00 06/27/18 19:00 Temperature 98.2 F Pulse Rate 85 96 H Respiratory Rate 17 18 Blood Pressure 144/71 H 118/58 L 117/72 Pulse Oximetry 95 94 L 06/27/18 20:00 06/27/18 20:42 06/27/18 21:00 Temperature 98.6 F Pulse Rate 90 85 98 H Respiratory Rate 20 16 22 Blood Pressure 126/59 L 103/59 L Pulse Oximetry 93 L 98 97 06/27/18 22:00 06/27/18 23:00 06/28/18 00:00 Temperature 98.5 F Pulse Rate 66 87 77 Respiratory Rate 20 18 20 Blood Pressure 115/69 122/64 112/59 L Pulse Oximetry 92 L 100 94 L 06/28/18 01:00 06/28/18 02:00 06/28/18 03:00 Temperature Pulse Rate 78 79 50 L Respiratory Rate 16 16 12 Blood Pressure 114/62 101/66 103/74 Pulse Oximetry 93 L 93 L 94 L 06/28/18 04:00 06/28/18 04:01 06/28/18 05:00 Temperature 98.8 F Pulse Rate 74 70 72 Respiratory Rate 14 16 16 Blood Pressure 115/72 126/68 Pulse Oximetry 97 96 06/28/18 06:00 06/28/18 07:59 06/28/18 08:00 Temperature 98.3 F Pulse Rate 76 91 H 80 Respiratory Rate 16 16 18 Blood Pressure 130/75 128/72 Pulse Oximetry 96 97 97 Intake & Output 06/27/18 06/28/18 06/28/18 18:59 06:59 18:59 Intake Total 276 / 276 1581 / 1581 Output Total 1000 / 1000 400 / 400 Balance -724 / -724 1181 / 1181 Weight 94.1 kg Intake: IV 276 / 276 1101 / 1101 NS Inj 1,000 ML @ 50 mls/hr IV. 1000 / 1000 CONT .Q20H [facility] Rx#:[id number] Cardizem Inj 125 MG In NS Inj 75 / 75 100 ML @ 5 MG/HR 5 mls/hr IV. CONT TITRATE PRN Rx#:[id number] Magnesium Sulfate Inj 2 GM In 100 / 100 NS Inj 96 ML @ 50 mls/hr IV.SIG ONCE ONE Rx#:[id number] Thiamine Inj 100 MG In NS Inj 101 / 101 101 / 101 100 ML @ 100 mls/hr IV.SIG Q24H [facility] Rx#:[id number] Oral 480 / 480 Output: Urine 1000 / 1000 400 / 400 Other: Date of Last Bowel Movement 06/26/18 06/26/18 06/26/18 # Bowel Movements 0 Physical Exam: no abdominal tenderness no overall distress Laboratory Results - last 24 hr 06/27/18 06/27/18 06/27/18 01:00 10:54 17:17 WBC RBC Hgb Hct MCV MCH MCHC RDW Plt Count MPV Neut % (Auto) Lymph % (Auto) [place] % (Auto) Eos % (Auto) Baso % (Auto) Neut # (Auto) Lymph # (Auto) [place] # (Auto) Eos # (Auto) Baso # (Auto) WBC Differential Differential Comment APTT Sodium Potassium Chloride Carbon Dioxide Anion Gap BUN Creatinine Estimated GFR POC Glucose 238 H Random Glucose Hemoglobin A1c 6.1 H Calcium Phosphorus Magnesium Total Bilirubin 0.6 Direct Bilirubin 0.2 Indirect Bilirubin 0.4 AST ALT Alkaline Phosphatase Total Protein Albumin Amylase 36 Lipase 54 L 06/27/18 06/27/18 06/28/18 20:47 23:39 02:32 WBC 17.8 H RBC 4.64 Hgb 13.2 Hct 39.6 MCV 85.2 MCH 28.4 MCHC 33.3 RDW 14.5 Plt Count 191 MPV 7.6 Neut % (Auto) 94.1 H Lymph % (Auto) 3.6 L [place] % (Auto) 1.6 Eos % (Auto) 0.0 Baso % (Auto) 0.7 Neut # (Auto) 16.7 H Lymph # (Auto) 0.6 L [place] # (Auto) 0.3 Eos # (Auto) 0.0 Baso # (Auto) 0.1 WBC Differential . Differential Comment Auto diff final APTT Sodium Potassium Chloride Carbon Dioxide Anion Gap BUN Creatinine Estimated GFR POC Glucose 178 H 143 H Random Glucose Hemoglobin A1c Calcium Phosphorus Magnesium Total Bilirubin Direct Bilirubin Indirect Bilirubin AST ALT Alkaline Phosphatase Total Protein Albumin Amylase Lipase 06/28/18 06/28/18 06/28/18 02:32 02:32 05:17 WBC RBC Hgb Hct MCV MCH MCHC RDW Plt Count MPV Neut % (Auto) Lymph % (Auto) [place] % (Auto) Eos % (Auto) Baso % (Auto) Neut # (Auto) Lymph # (Auto) [place] # (Auto) Eos # (Auto) Baso # (Auto) WBC Differential Differential Comment APTT 25.2 Sodium 140 Potassium 4.4 Chloride 107 Carbon Dioxide 24.3 Anion Gap 9 BUN 23 H Creatinine 0.86 Estimated GFR Greater than 89 POC Glucose 152 H Random Glucose 153 H Hemoglobin A1c Calcium 8.1 L Phosphorus 3.4 Magnesium 2.2 Total Bilirubin 0.4 Direct Bilirubin Indirect Bilirubin AST 15 ALT 39 Alkaline Phosphatase 123 H Total Protein 6.4 D Albumin 2.9 L Amylase Lipase Microbiology 06/27/18 17:15 Gram Stain - Final Sputum - Expectorated Sputum 06/27/18 14:35 Influenza Types A,B Antigen - Final Nasal Wash Negative for FLU A and B antigen Infection due to influenza A or B cannot be ruled out since the antigen present in the sample may be below the detection limit of the test. Impressions Chest X-Ray 06/27/18 00:00 CONCLUSION: Cardiomegaly. No acute pulmonary disease. 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 Need repair semi-electively. Could have open juxtarenal repair. EF preserved on TTE - no additional cardiac work-up needed 1. should have ASA and statin pre-op 2. Will plan repair likely within the week - ok to go home and come back from my standpoint. 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 [phone]
--- NOTE | 2018-06-28 10:05 | P.PNCA ---
Subjective Interval history: No CP, dyspnea, dizziness, palpitations, abdominal pain. Medications and Allergies Active Medications: Active Medications Acetaminophen (Tylenol) 650 mg PO Q6H PRN PRN Reason: Fever >100f Hydrocodone Bitart/Acetaminophen ([place] 5/325) 1 tab PO Q4H PRN PRN Reason: Pain 1 through 5 Al Hydroxide/Mg Hydroxide (Milk Of Magnmeseret Liq) 30 ml PO Q12H PRN PRN Reason: Mild Constipation Albuterol (Albuterol Neb (Prn)) 2.5 mg NEB Q2HR NEB PRN PRN Reason: SHORTNESS OF BREATH/WHEEZING Albuterol (Duoneb Neb ([facility])) 1 ampul NEB Q4HR NEB [facility] Last Admin: 06/28/18 07:58 Dose: 1 ampul Aspirin (Aspirin Chew) 81 mg PO DAILY [facility] Last Admin: 06/28/18 08:48 Dose: 81 mg Bacitracin (Baciguent Oint) 1 applicatio TOPICAL BID [facility] Last Admin: 06/28/18 08:48 Dose: 1 applicatio Bisacodyl (Dulcolax Supp) 10 mg RECTAL DAILY PRN PRN Reason: SEVERE CONSITIPATION Budesonide/Formoterol Fumarate (Symbicort 160/4.5 Mcg Inh) 2 puff INH BID [facility] Last Admin: 06/27/18 20:10 Dose: 2 puff Chlorhexidine Gluconate (Chlorhexidine 2% Cloth) 3 pack TOPICAL DAILY@0400 [facility] Stop: 07/02/18 03:59 Last Admin: 06/28/18 04:21 Dose: 3 pack Chlorhexidine Gluconate (Chlorhexidine 2% Cloth) 3 pack TOPICAL DAILY@0400 PRN PRN Reason: Extra cloth needed Stop: 07/02/18 03:59 Dextrose (D50w Vial) 50 ml IV.PUSH UNSCH PRN PRN Reason: PER HYPOGLYCEMIA PROTOCOL Diltiazem HCl (Cardizem) 60 mg PO QID [facility] Last Admin: 06/28/18 08:50 Dose: 60 mg Enalaprilat (Vasotec Inj) 2.5 mg IV.PUSH Q6H PRN PRN Reason: SBP > 130 Folic Acid (Folic Acid) 1 mg PO DAILY [facility] Last Admin: 06/28/18 08:48 Dose: 1 mg Glucagon (Glucagon Inj) 1 mg OTHER PRN PRN PRN Reason: for Hypoglycemia Protocol Heparin Sodium (Porcine) (Heparin Inj) 5,000 units SQ Q8H [facility] Last Admin: 06/28/18 06:03 Dose: 5,000 units Sodium Chloride (Ns Inj) 1,000 mls @ 50 mls/hr IV.CONT .Q20H [facility] Last Admin: 06/27/18 23:43 Dose: 50 mls/hr Magnesium Sulfate 2 gm/ Sodium (Chloride) 100 mls @ 50 mls/hr IV.SIG UNSCH PRN PRN Reason: For Magnesium 1.2 - 1.6 mg/dL Potassium Chloride (Kcl 20 Meq Premix Inj) 20 meq in 100 mls @ 50 mls/hr IV.SIG Q2H PRN PRN Reason: For Potassium 3.3 - 3.5 mEq/L Potassium Chloride (Kcl 40 Meq Premix Inj) 40 meq in 100 mls @ 25 mls/hr IV.SIG UNSCH PRN PRN Reason: For Potassium 3.3 - 3.5 mEq/L Potassium Chloride (Kcl 20 Meq Premix Inj) 20 meq in 100 mls @ 50 mls/hr IV.SIG Q2H PRN PRN Reason: For Potassium 2.8 - 3.2 mEq/L Potassium Phosphate 30 mmol/ (Sodium Chloride) 260 mls @ 42 mls/hr IV.SIG UNSCH PRN PRN Reason: SEE LABEL COMMENTS Sodium Phosphate 30 mmol/ (Sodium Chloride) 260 mls @ 42 mls/hr IV.SIG UNSCH PRN PRN Reason: For Phosphorus < 2.5 mg/dL Potassium Chloride (Kcl 40 Meq Premix Inj) 40 meq in 100 mls @ 25 mls/hr IV.SIG Q2H PRN PRN Reason: For Potassium 2.8 - 3.2 mEq/L Magnesium Sulfate 4 gm/ Sodium (Chloride) 100 mls @ 50 mls/hr IV.SIG UNSCH PRN PRN Reason: For Magnesium 0.9 - 1.1 mg/dL Thiamine HCl 100 mg/ Sodium (Chloride) 101 mls @ 100 mls/hr IV.SIG Q24H [facility] Last Infusion: 06/28/18 00:54 Dose: Infused Insulin Aspart (Novolog Insulin Correctional Sugar Inj) 0 unit SQ Q6HR [facility]; Protocol Last Admin: 06/28/18 06:03 Dose: 1 unit Labetalol HCl (Trandate Inj) 10 mg IV.PUSH Q1H PRN PRN Reason: SBP >130 Last Admin: 06/28/18 05:13 Dose: 10 mg Lactulose (Lactulose Liq) 30 ml PO DAILY PRN PRN Reason: SEVERE CONSITIPATION Magnesium Oxide (Mag-Ox) 800 mg PO UNSCH PRN PRN Reason: For Magnesium 1.2 - 1.6 mg/dL Methylprednisolone Sodium Succinate (Solumedrol Inj) 40 mg IV.PUSH Q12HR [facility] Last Admin: 06/28/18 08:48 Dose: 40 mg Morphine Sulfate (Morphine Inj) 2 mg IV.PUSH Q2H PRN PRN Reason: Pain 6 through 10 Multivitamins (Theragran) 1 tab PO DAILY [facility] Last Admin: 06/28/18 08:48 Dose: 1 tab Ondansetron HCl (Zofran Inj) 4 mg IV.PUSH Q6H PRN PRN Reason: NAUSEA OR VOMITING Pantoprazole Sodium (Protonix) 40 mg PO DAILY [facility] Last Admin: 06/28/18 08:48 Dose: 40 mg Potassium Bicarb/Potassium Chloride (K-Lyte Cl Eff) 50 meq PO UNSCH PRN PRN Reason: For Potassium 3.3 - 3.5 mEq/L Potassium Phosphate (K-Phos Original) 2,000 mg PO Q4H PRN PRN Reason: Phosphorus Less Than 2.5 mg/dL Potassium Phosphate (K-Phos Original) 2,000 mg PO UNSCH PRN PRN Reason: SEE LABEL COMMENTS Pravastatin Sodium (Pravachol) 40 mg PO DAILY [facility] Last Admin: 06/28/18 08:47 Dose: 40 mg Senna/Docusate Sodium (Tish-Colace) 1 tab PO BID [facility] Last Admin: 06/28/18 08:48 Dose: Not Given Sennosides (Senokot) 17.2 mg PO Q12H PRN PRN Reason: Moderate Constipation Sodium Chloride (Ns Flush) 2 ml IV.FLUSH BID [facility] Last Admin: 06/28/18 08:48 Dose: 2 ml Sodium Chloride (Ns Flush) 2 ml IV.FLUSH PRN PRN PRN Reason: FLUSH AFTER USING IV ACCESS Allergies Allergy/AdvReac Type Severity Reaction Status Date / Time No Known Allergies Allergy Unverified 06/26/18 22:08 Physical Exam Vital signs: Vital Signs 06/27/18 12:00 06/27/18 18:00 06/27/18 19:00 Temperature 98.2 F Pulse Rate 85 96 H Respiratory Rate 17 18 Blood Pressure 144/71 H 118/58 L 117/72 Pulse Oximetry 95 94 L 06/27/18 20:00 06/27/18 20:42 06/27/18 21:00 Temperature 98.6 F Pulse Rate 90 85 98 H Respiratory Rate 20 16 22 Blood Pressure 126/59 L 103/59 L Pulse Oximetry 93 L 98 97 06/27/18 22:00 06/27/18 23:00 06/28/18 00:00 Temperature 98.5 F Pulse Rate 66 87 77 Respiratory Rate 20 18 20 Blood Pressure 115/69 122/64 112/59 L Pulse Oximetry 92 L 100 94 L 06/28/18 01:00 06/28/18 02:00 06/28/18 03:00 Temperature Pulse Rate 78 79 50 L Respiratory Rate 16 16 12 Blood Pressure 114/62 101/66 103/74 Pulse Oximetry 93 L 93 L 94 L 06/28/18 04:00 06/28/18 04:01 06/28/18 05:00 Temperature 98.8 F Pulse Rate 74 70 72 Respiratory Rate 14 16 16 Blood Pressure 115/72 126/68 Pulse Oximetry 97 96 06/28/18 06:00 06/28/18 07:59 06/28/18 08:00 Temperature 98.3 F Pulse Rate 76 91 H 80 Respiratory Rate 16 16 18 Blood Pressure 130/75 128/72 Pulse Oximetry 96 97 97 Intake & Output 06/27/18 06/28/18 06/28/18 18:59 06:59 18:59 Intake Total 276 / 276 1581 / 1581 Output Total 1000 / 1000 400 / 400 Balance -724 / -724 1181 / 1181 Weight 94.1 kg Intake: IV 276 / 276 1101 / 1101 NS Inj 1,000 ML @ 50 mls/hr IV. 1000 / 1000 CONT .Q20H [facility] Rx#:[id number] Cardizem Inj 125 MG In NS Inj 75 / 75 100 ML @ 5 MG/HR 5 mls/hr IV. CONT TITRATE PRN Rx#:[id number] Magnesium Sulfate Inj 2 GM In 100 / 100 NS Inj 96 ML @ 50 mls/hr IV.SIG ONCE ONE Rx#:[id number] Thiamine Inj 100 MG In NS Inj 101 / 101 101 / 101 100 ML @ 100 mls/hr IV.SIG Q24H [facility] Rx#:[id number] Oral 480 / 480 Output: Urine 1000 / 1000 400 / 400 Other: Date of Last Bowel Movement 06/26/18 06/26/18 06/26/18 # Bowel Movements 0 - Constitutional no acute distress - Routine Neck Exam Absent: JVD - Routine Respiratory Exam Present: CTA bilaterally - Routine Cardiovascular Exam Present: S1, S2, irregular rhythm. Absent: murmur, gallop - Routine Abdominal Exam Present: soft, normoactive bowel sounds. Absent: tenderness, organomegaly - Routine Extremities Exam Absent: cyanosis, clubbing, edema Results 06/28/18 02:32 06/28/18 02:32 Cardiac Enzymes 06/27/18 06/27/18 06/28/18 Range/Units 01:00 03:22 02:32 AST 30 15 (15-37) U/L Troponin I 0.49 H 0.43 H (0.02-0.05) ng/mL Coagulation 06/27/18 06/28/18 Range/Units 03:22 02:32 PT 11.7 H (9.8-11.6) sec APTT 27.2 25.2 (24.3-30.1) sec Lipids 06/27/18 Range/Units 03:22 Triglycerides 70 (42-150) mg/dL Cholesterol 177 (120-200) mg/dL HDL Cholesterol 34.4 L (40.0-60.0) mg/dL Cholesterol/HDL Ratio 5.14 Ratio CBC 06/27/18 06/28/18 Range/Units 01:00 02:32 WBC 8.2 17.8 H (4.0-11.0) th/mm3 RBC 5.09 4.64 (4.50-5.90) mil/mm3 Hgb 14.5 13.2 (13.0-17.0) gm/dL Hct 42.5 39.6 (39.0-51.0) % Plt Count 203 191 (150-450) th/mm3 Neut # (Auto) 16.7 H (1.8-7.7) th/mm3 Lymph # (Auto) 0.6 L (1.0-4.8) th/mm3 [place] # (Auto) 0.3 (0.0-0.9) th/mm3 Eos # (Auto) 0.0 (0.0-0.4) th/mm3 Baso # (Auto) 0.1 (0.0-0.2) th/mm3 Comprehensive Metabolic Panel 06/27/18 06/27/18 06/28/18 Range/Units 01:00 10:54 02:32 Sodium 140 140 (136-145) meq/L Potassium 4.0 4.4 (3.5-5.1) meq/L Chloride 104 107 (98-107) meq/L Carbon Dioxide 25.2 24.3 (21.0-32.0) meq/L BUN 18 23 H (7-18) mg/dL Creatinine 1.01 0.86 (0.60-1.30) mg/dL Calcium 8.4 L 8.1 L (8.5-10.1) mg/dL Direct Bilirubin 0.2 (0.0-0.2) mg/dL Indirect Bilirubin 0.4 (0.0-0.8) mg/dL AST 30 15 (15-37) U/L ALT 54 39 (12-78) U/L Alkaline Phosphatase 132 H 123 H (45-117) U/L Total Protein 7.0 6.4 D (6.4-8.2) g/dL Albumin 3.1 L 2.9 L (3.4-5.0) g/dL Intake and Output 06/27/18 06/28/18 06/28/18 22:59 06:59 14:59 Intake Total 75 / 75 1581 / 1581 Output Total 1000 / 1000 400 / 400 Balance -925 / -925 1181 / 1181 Intake: IV 75 / 75 1101 / 1101 NS Inj 1,000 ML @ 50 mls/hr IV. 1000 / 1000 CONT .Q20H [facility] Rx#:[id number] Cardizem Inj 125 MG In NS Inj 75 / 75 100 ML @ 5 MG/HR 5 mls/hr IV. CONT TITRATE PRN Rx#:[id number] Thiamine Inj 100 MG In NS Inj 101 / 101 100 ML @ 100 mls/hr IV.SIG Q24H [facility] Rx#:[id number] Oral 480 / 480 Output: Urine 1000 / 1000 400 / 400 Other: Date of Last Bowel Movement 06/26/18 06/26/18 06/26/18 # Bowel Movements 0 Weight 94.1 kg - Imaging and Cardiology Imaging: Impressions Chest X-Ray 06/27/18 00:00 CONCLUSION: Cardiomegaly. No acute pulmonary disease. Assessment and Plan - Assessment (1) Paroxysmal atrial fibrillation Code(s): I48.0 - Paroxysmal atrial fibrillation Status: Acute Plan: Remains in atrial fibrillation, overall controlled HR's on oral diltiazem. Echo unremarkable. Thromboembolic risk low. Recommend continue diltiazem, aspirin. (2) Elevated troponin Code(s): R74.8 - Abnormal levels of other serum enzymes Status: Acute Plan: No definite CP symptoms though dyspnea and abnormal troponin levels on admission , possibly explained by the atrial fib. In light of the magnitude of the vascular surgery needed, will check preop nuclear stress test mainly for risk assessment. Echo unremarkable. - Plan Code Status: full code Discussed Condition With: patient
[2018-06-28] MEDS: Sod Chloride 0.9% Inj 1,000 ML IV.CONT SCH (16:54)
--- NOTE | 2018-06-28 18:55 | P.PNIM ---
Subjective Interval history: Patient feels well today. He does not have any specific complaints. Physical Exam Vital signs: Vital Signs 06/27/18 19:00 06/27/18 20:00 06/27/18 20:42 Temperature 98.6 F Pulse Rate 96 H 90 85 Respiratory Rate 18 20 16 Blood Pressure 117/72 126/59 L Pulse Oximetry 94 L 93 L 98 06/27/18 21:00 06/27/18 22:00 06/27/18 23:00 Temperature Pulse Rate 98 H 66 87 Respiratory Rate 22 20 18 Blood Pressure 103/59 L 115/69 122/64 Pulse Oximetry 97 92 L 100 06/28/18 00:00 06/28/18 01:00 06/28/18 02:00 Temperature 98.5 F Pulse Rate 77 78 79 Respiratory Rate 20 16 16 Blood Pressure 112/59 L 114/62 101/66 Pulse Oximetry 94 L 93 L 93 L 06/28/18 03:00 06/28/18 04:00 06/28/18 04:01 Temperature 98.8 F Pulse Rate 50 L 74 70 Respiratory Rate 12 14 16 Blood Pressure 103/74 115/72 Pulse Oximetry 94 L 97 06/28/18 05:00 06/28/18 06:00 06/28/18 07:59 Temperature Pulse Rate 72 76 91 H Respiratory Rate 16 16 16 Blood Pressure 126/68 130/75 Pulse Oximetry 96 96 97 06/28/18 08:00 06/28/18 11:00 06/28/18 12:00 Temperature 98.3 F 97.8 F Pulse Rate 80 96 H 86 Respiratory Rate 18 16 20 Blood Pressure 128/72 126/66 Pulse Oximetry 97 99 06/28/18 15:06 06/28/18 16:00 Temperature 98 F Pulse Rate 98 H 74 Respiratory Rate 16 18 Blood Pressure 110/67 Pulse Oximetry 98 Intake & Output 06/27/18 06/28/18 06/28/18 18:59 06:59 18:59 Intake Total 276 / 276 1581 / 1581 1620 / 1620 Output Total 1000 / 1000 400 / 400 950 / 950 Balance -724 / -724 1181 / 1181 670 / 670 Weight 94.1 kg Intake: IV 276 / 276 1101 / 1101 900 / 900 NS Inj 1,000 ML @ 50 mls/hr IV. 1000 / 1000 900 / 900 CONT .Q20H [facility] Rx#:[id number] Cardizem Inj 125 MG In NS Inj 75 / 75 100 ML @ 5 MG/HR 5 mls/hr IV. CONT TITRATE PRN Rx#:[id number] Magnesium Sulfate Inj 2 GM In 100 / 100 NS Inj 96 ML @ 50 mls/hr IV.SIG ONCE ONE Rx#:[id number] Thiamine Inj 100 MG In NS Inj 101 / 101 101 / 101 100 ML @ 100 mls/hr IV.SIG Q24H [facility] Rx#:[id number] Oral 480 / 480 720 / 720 Output: Urine 1000 / 1000 400 / 400 950 / 950 Other: Date of Last Bowel Movement 06/26/18 06/26/18 06/26/18 # Bowel Movements 0 Narrative: General patient in no acute distress HEENT extraocular movements are intact, clear oropharyngeal mucosa, no JVD Cardiovascular S1-S2 audible Respiratory clear to auscultation bilaterally Abdomen soft, nontender, nondistended, normal bowel sounds Extremities no edema 2+ distal pulses in bilateral upper and lower extremities Neuro patient moves all 4 extremities, sensation is intact bilaterally. The patient is amatory. Results - Labs CBC & Chem 7: 06/28/18 02:32 06/28/18 02:32 Laboratory Results - last 24 hr 06/27/18 06/27/18 06/28/18 20:47 23:39 02:32 WBC 17.8 H RBC 4.64 Hgb 13.2 Hct 39.6 MCV 85.2 MCH 28.4 MCHC 33.3 RDW 14.5 Plt Count 191 MPV 7.6 Neut % (Auto) 94.1 H Lymph % (Auto) 3.6 L [place] % (Auto) 1.6 Eos % (Auto) 0.0 Baso % (Auto) 0.7 Neut # (Auto) 16.7 H Lymph # (Auto) 0.6 L [place] # (Auto) 0.3 Eos # (Auto) 0.0 Baso # (Auto) 0.1 WBC Differential . Differential Comment Auto diff final APTT Sodium Potassium Chloride Carbon Dioxide Anion Gap BUN Creatinine Estimated GFR POC Glucose 178 H 143 H Random Glucose Calcium Phosphorus Magnesium Total Bilirubin AST ALT Alkaline Phosphatase Total Protein Albumin 06/28/18 06/28/18 06/28/18 02:32 02:32 05:17 WBC RBC Hgb Hct MCV MCH MCHC RDW Plt Count MPV Neut % (Auto) Lymph % (Auto) [place] % (Auto) Eos % (Auto) Baso % (Auto) Neut # (Auto) Lymph # (Auto) [place] # (Auto) Eos # (Auto) Baso # (Auto) WBC Differential Differential Comment APTT 25.2 Sodium 140 Potassium 4.4 Chloride 107 Carbon Dioxide 24.3 Anion Gap 9 BUN 23 H Creatinine 0.86 Estimated GFR Greater than 89 POC Glucose 152 H Random Glucose 153 H Calcium 8.1 L Phosphorus 3.4 Magnesium 2.2 Total Bilirubin 0.4 AST 15 ALT 39 Alkaline Phosphatase 123 H Total Protein 6.4 D Albumin 2.9 L 06/28/18 06/28/18 11:57 17:55 WBC RBC Hgb Hct MCV MCH MCHC RDW Plt Count MPV Neut % (Auto) Lymph % (Auto) [place] % (Auto) Eos % (Auto) Baso % (Auto) Neut # (Auto) Lymph # (Auto) [place] # (Auto) Eos # (Auto) Baso # (Auto) WBC Differential Differential Comment APTT Sodium Potassium Chloride Carbon Dioxide Anion Gap BUN Creatinine Estimated GFR POC Glucose 235 H 140 H Random Glucose Calcium Phosphorus Magnesium Total Bilirubin AST ALT Alkaline Phosphatase Total Protein Albumin Microbiology 06/27/18 17:15 Sputum - Expectorated Sputum Gram Stain - Final 06/27/18 17:15 Sputum - Expectorated Sputum Sputum Culture - Preliminary Heavy growth normal respiratory yared at 24 hours 06/27/18 14:35 Nasal Wash Influenza Types A,B Antigen - Final Negative for FLU A and B antigen Infection due to influenza A or B cannot be ruled out since the antigen present in the sample may be below the detection limit of the test. Assessment and Plan - Plan This patient is a 52-year-old male with a diagnosis of polysubstance abuse including methamphetamine, tobacco,, cocaine abuse and EtOH abuse. The patient also has COPD. He was transferred from [facility] due to a large infrarenal abdominal aortic aneurysm. He was having abdominal pain and bloating for about 3 weeks and his symptoms were progressively getting worse so he went to [facility] for evaluation. He was also found to be in A. fib with rapid ventricular rate. He was then sent to our facility as a transfer from [facility] for further evaluation and care of his large infrarenal aortic aneurysm. 1. Large asymptomatic infrarenal abdominal aortic aneurysm 2. New onset atrial fibrillation rate now controlled. The patient was found to have new onset atrial fibrillation, rate is now under control with Cardizem. Troponins were elevated which are possibly due to the atrial fibrillation as per cardiology. Imaging shows a large 7.2 x 7.5 x 10 cm aneurysm with a possible mural thrombus. Cardiology evaluate the patient and recommends a nuclear stress test which will possibly happen tomorrow. I had a discussion with Dr. Hanna over the phone today and he recommends that the patient have the infrarenal abdominal aortic aneurysm repair done sometime next week. He will check availability on his schedule and give the patient a specific day sometime next week. If the patient's nuclear stress test is negative he will be discharged home tomorrow and he will be given a date to come back for surgical repair of the abdominal aortic aneurysm. As per vascular surgery subcu heparin for DVT prophylaxis is okay. Continue aspirin and a statin. The plan was explained to the patient in detail and he understands the plan. 3. COPD Patient is currently on room air without any complaints of shortness of breath. Continue breathing treatments as needed. 4. Tobacco smoking Patient was counseled on tobacco smoking. The risks of continued tobacco smoking given the patient's history and current condition were discussed in detail with him. Heparin for DVT prophylaxis.
[2018-06-28] MEDS: Acetaminophen 325 MG Tablet PO PRN (20:25)
[2018-06-28] MEDS: Budesonide-Formoterol 160/4.5 MCG 6 GM Inhaler INH SCH (21:30)
[2018-06-29] MEDS: Insulin NovoLOG Aspart Correctional Sugar Inj SQ SCH ×3 (00:35→12:58)
[2018-06-29] MEDS: Heparin - SQ 10,000 UNITS/ML Vial SQ SCH ×3 (02:34→16:32)
[2018-06-29] MEDS: Thiamine Inj 100 MG in Sodium Chlor 0.9% Inj 100 ML IV.SIG SCH (02:36)
[2018-06-29] MEDS: Chlorhexidine Gluconate 2% 1 Pack (2 Cloths) TOPICAL SCH (05:11)
--- NOTE | 2018-06-29 08:46 | P.PNVS ---
Subjective Subjective/Hospital Course: PT resting in bed, comfortable, no distress and no abdominal or back pain awaiting nuc med study appears to be back in a-fib this morning though significant artifact on tracing - no symptoms of chest pain or SOB Objective Vital Signs / I&O: Vital Signs 06/28/18 11:00 06/28/18 12:00 06/28/18 15:06 Temperature 97.8 F Pulse Rate 96 H 86 98 H Respiratory Rate 16 20 16 Blood Pressure 126/66 Pulse Oximetry 99 06/28/18 16:00 06/28/18 20:00 06/28/18 20:46 Temperature 98 F 98.1 F Pulse Rate 74 86 83 Respiratory Rate 18 19 16 Blood Pressure 110/67 114/71 Pulse Oximetry 98 97 06/28/18 20:47 06/29/18 00:00 06/29/18 04:00 Temperature 98.0 F 98.2 F Pulse Rate 86 88 Respiratory Rate 17 17 Blood Pressure 121/86 149/87 H Pulse Oximetry 95 92 L 94 L 06/29/18 07:00 06/29/18 07:38 Temperature Pulse Rate 100 H Respiratory Rate 16 Blood Pressure Pulse Oximetry 97 Intake & Output 06/28/18 06/29/18 06/29/18 18:59 06:59 18:59 Intake Total 1620 / 1620 341 / 341 Output Total 950 / 950 900 / 900 Balance 670 / 670 -559 / -559 Weight 94.8 kg Intake: IV 900 / 900 101 / 101 NS Inj 1,000 ML @ 50 mls/hr IV. 900 / 900 CONT .Q20H [facility] Rx#:[id number] Thiamine Inj 100 MG In NS Inj 101 / 101 100 ML @ 100 mls/hr IV.SIG Q24H [facility] Rx#:[id number] Oral 720 / 720 240 / 240 Output: Urine 950 / 950 900 / 900 Other: Date of Last Bowel Movement 06/26/18 06/29/18 Physical Exam: abdomen soft, NT Laboratory Results - last 24 hr 06/28/18 06/28/18 06/29/18 11:57 17:55 00:15 POC Glucose 235 H 140 H 146 H 06/29/18 06:46 POC Glucose 130 H Microbiology 06/27/18 17:15 Gram Stain - Final Sputum - Expectorated Sputum Sputum Culture - Preliminary Heavy growth normal respiratory yared at 24 hours Assessment and Plan - Assessment (1) AAA (abdominal aortic aneurysm) without rupture Code(s): I71.4 - Abdominal aortic aneurysm, without rupture Status: Acute - Plan Intact, asymptomatic 7.5 cm juxtarenal AAA. Need repair semi-electively. Could have open juxtarenal repair. annual rupture risk 20-25% 1. Scheduled for surgery SATURDAY 07/07 2. Discussed procedure with patient in detail today 3. continue cardiac w/u Brian Hanna MD FACS [employer] [facility] - Heart and Vascular Surgery at [facility] [phone]
[2018-06-29] MEDS: dilTIAZem 60 MG Tablet PO SCH ×3 (09:16→18:18)
[2018-06-29] MEDS: Folic Acid 1 MG Tablet PO SCH (09:16)
[2018-06-29] MEDS: Budesonide-Formoterol 160/4.5 MCG 6 GM Inhaler INH SCH ×3 (09:16→16:34)
[2018-06-29] MEDS: Senna/Docusate Sodium 8.6/50 MG Tablet PO SCH (09:16)
[2018-06-29] MEDS: MethylPREDNISolone Sod Succinate Inj 40 MG/ML Vial IV.PUSH SCH (09:17)
[2018-06-29] MEDS: Acetaminophen 325 MG Tablet PO PRN (09:30)
[2018-06-29] MEDS ORDERED: Regadenoson Inj 0.4 MG/5 ML Syringe IV.PUSH ONE (09:58)
--- NOTE | 2018-06-29 11:37 | NM ---
EXAM DATE: 06/29/2018 10:00 AM EDT AGE/SEX: 52 years / Male INDICATIONS:Coronary artery disease. Atrial fibrillation CLINICAL DATA: This is the patient's initial encounter. Patient reports that signs and symptoms have been present for 1 day and indicates a pain score of 0/10. MEDICAL/SURGICAL HISTORY: Chronic obstructive pulmonary disease. Smoker. ETOH abuse. Methamphet amine abuse. Cardiomegaly. None. COMPARISON: . DOSE: 8.8 mCi Tc 99m Myoview at rest 27.3 mCi [id number] at stress 0.4 mg Lexiscan STRESS SYMPTOMS: Head pressure and dyspnea. EJECTION FRACTION: 48 % TECHNIQUE: The patient underwent pharmacologic stress with infusion of prescribed dose. Continuous ECG tracing was monitored during stress. Gated SPECT imaging was performed after stress and conventi onal SPECT imaging was performed at rest. The examination was performed on a SPECT/CT scanner, both attenuation and non-corrected datasets were reviewed. FINDINGS: Distribution: The maximum perfused segment at stress is in the lateral wall. Perfusion Study: The pattern of perfusion at stress is within normal limits. There is mild decrea sed activity in the apical and mid anterior wall on the stress and rest images. Gated Study: There are intact wall motion and wall thickening without hypokinetic or dyskinetic segm ents. The ejection fraction is calculated at 48%. RISK CATEGORY: Low (<1% Annual Motality Rate) CONCLUSION: No areas of ischemia are seen. Electronically signed by: Matias Valladares MD 06/29/2018 11:36 AM EDT
--- NOTE | 2018-06-29 12:04 | P.PNCA ---
Subjective Interval history: No dyspnea, palpitations, dizziness, CP. Medications and Allergies Active Medications: Active Medications Acetaminophen (Tylenol) 650 mg PO Q6H PRN PRN Reason: Fever >100f Last Admin: 06/29/18 09:30 Dose: 650 mg Hydrocodone Bitart/Acetaminophen ([place] 5/325) 1 tab PO Q4H PRN PRN Reason: Pain 1 through 5 Al Hydroxide/Mg Hydroxide (Milk Of Magnesia Liq) 30 ml PO Q12H PRN PRN Reason: Mild Constipation Albuterol (Albuterol Neb (Prn)) 2.5 mg NEB Q2HR NEB PRN PRN Reason: SHORTNESS OF BREATH/WHEEZING Albuterol (Duoneb Neb (Stacey)) 1 ampul NEB Q4HR NEB [facility] Last Admin: 06/29/18 11:29 Dose: 1 ampul Aspirin (Aspirin Chew) 81 mg PO DAILY [facility] Last Admin: 06/29/18 09:16 Dose: 81 mg Bacitracin (Baciguent Oint) 1 applicatio TOPICAL BID [facility] Last Admin: 06/29/18 09:17 Dose: 1 applicatio Bisacodyl (Dulcolax Supp) 10 mg RECTAL DAILY PRN PRN Reason: SEVERE CONSITIPATION Budesonide/Formoterol Fumarate (Symbicort 160/4.5 Mcg Inh) 2 puff INH BID [facility] Last Admin: 06/29/18 09:16 Dose: 2 puff Chlorhexidine Gluconate (Chlorhexidine 2% Cloth) 3 pack TOPICAL DAILY@0400 [facility] Stop: 07/02/18 03:59 Last Admin: 06/29/18 05:11 Dose: 3 pack Chlorhexidine Gluconate (Chlorhexidine 2% Cloth) 3 pack TOPICAL DAILY@0400 PRN PRN Reason: Extra cloth needed Stop: 07/02/18 03:59 Dextrose (D50w Vial) 50 ml IV.PUSH UNSCH PRN PRN Reason: PER HYPOGLYCEMIA PROTOCOL Diltiazem HCl (Cardizem) 60 mg PO QID [facility] Last Admin: 06/29/18 09:16 Dose: 60 mg Enalaprilat (Vasotec Inj) 2.5 mg IV.PUSH Q6H PRN PRN Reason: SBP > 130 Folic Acid (Folic Acid) 1 mg PO DAILY [facility] Last Admin: 06/29/18 09:16 Dose: 1 mg Glucagon (Glucagon Inj) 1 mg OTHER PRN PRN PRN Reason: for Hypoglycemia Protocol Heparin Sodium (Porcine) (Heparin Inj) 5,000 units SQ Q8H [facility] Last Admin: 06/29/18 09:17 Dose: 5,000 units Sodium Chloride (Ns Inj) 1,000 mls @ 50 mls/hr IV.CONT .Q20H [facility] Last Admin: 06/28/18 16:54 Dose: 50 mls/hr Magnesium Sulfate 2 gm/ Sodium (Chloride) 100 mls @ 50 mls/hr IV.SIG UNSCH PRN PRN Reason: For Magnesium 1.2 - 1.6 mg/dL Potassium Chloride (Kcl 20 Meq Premix Inj) 20 meq in 100 mls @ 50 mls/hr IV.SIG Q2H PRN PRN Reason: For Potassium 3.3 - 3.5 mEq/L Potassium Chloride (Kcl 40 Meq Premix Inj) 40 meq in 100 mls @ 25 mls/hr IV.SIG UNSCH PRN PRN Reason: For Potassium 3.3 - 3.5 mEq/L Potassium Chloride (Kcl 20 Meq Premix Inj) 20 meq in 100 mls @ 50 mls/hr IV.SIG Q2H PRN PRN Reason: For Potassium 2.8 - 3.2 mEq/L Potassium Phosphate 30 mmol/ (Sodium Chloride) 260 mls @ 42 mls/hr IV.SIG UNSCH PRN PRN Reason: SEE LABEL COMMENTS Sodium Phosphate 30 mmol/ (Sodium Chloride) 260 mls @ 42 mls/hr IV.SIG UNSCH PRN PRN Reason: For Phosphorus < 2.5 mg/dL Potassium Chloride (Kcl 40 Meq Premix Inj) 40 meq in 100 mls @ 25 mls/hr IV.SIG Q2H PRN PRN Reason: For Potassium 2.8 - 3.2 mEq/L Magnesium Sulfate 4 gm/ Sodium (Chloride) 100 mls @ 50 mls/hr IV.SIG UNSCH PRN PRN Reason: For Magnesium 0.9 - 1.1 mg/dL Thiamine HCl 100 mg/ Sodium (Chloride) 101 mls @ 100 mls/hr IV.SIG Q24H [facility] Last Infusion: 06/29/18 03:45 Dose: Infused Insulin Aspart (Novolog Insulin Correctional Sugar Inj) 0 unit SQ Q6HR [facility]; Protocol Last Admin: 06/29/18 06:59 Dose: Not Given Labetalol HCl (Trandate Inj) 10 mg IV.PUSH Q1H PRN PRN Reason: SBP >130 Last Admin: 06/28/18 11:52 Dose: 10 mg Lactulose (Lactulose Liq) 30 ml PO DAILY PRN PRN Reason: SEVERE CONSITIPATION Magnesium Oxide (Mag-Ox) 800 mg PO UNSCH PRN PRN Reason: For Magnesium 1.2 - 1.6 mg/dL Methylprednisolone Sodium Succinate (Solumedrol Inj) 40 mg IV.PUSH Q12HR [facility] Last Admin: 06/29/18 09:17 Dose: 40 mg Morphine Sulfate (Morphine Inj) 2 mg IV.PUSH Q2H PRN PRN Reason: Pain 6 through 10 Multivitamins (Theragran) 1 tab PO DAILY [facility] Last Admin: 06/29/18 09:16 Dose: 1 tab Ondansetron HCl (Zofran Inj) 4 mg IV.PUSH Q6H PRN PRN Reason: NAUSEA OR VOMITING Pantoprazole Sodium (Protonix) 40 mg PO DAILY [facility] Last Admin: 06/29/18 09:17 Dose: 40 mg Potassium Bicarb/Potassium Chloride (K-Lyte Cl Eff) 50 meq PO UNSCH PRN PRN Reason: For Potassium 3.3 - 3.5 mEq/L Potassium Phosphate (K-Phos Original) 2,000 mg PO Q4H PRN PRN Reason: Phosphorus Less Than 2.5 mg/dL Potassium Phosphate (K-Phos Original) 2,000 mg PO UNSCH PRN PRN Reason: SEE LABEL COMMENTS Pravastatin Sodium (Pravachol) 40 mg PO DAILY [facility] Last Admin: 06/29/18 09:17 Dose: 40 mg Senna/Docusate Sodium (Tish-Colace) 1 tab PO BID [facility] Last Admin: 06/29/18 09:16 Dose: 1 tab Sennosides (Senokot) 17.2 mg PO Q12H PRN PRN Reason: Moderate Constipation Sodium Chloride (Ns Flush) 2 ml IV.FLUSH BID [facility] Last Admin: 06/29/18 09:17 Dose: 2 ml Sodium Chloride (Ns Flush) 2 ml IV.FLUSH PRN PRN PRN Reason: FLUSH AFTER USING IV ACCESS Allergies Allergy/AdvReac Type Severity Reaction Status Date / Time No Known Allergies Allergy Unverified 06/26/18 22:08 Physical Exam Vital signs: Vital Signs 06/28/18 15:06 06/28/18 16:00 06/28/18 20:00 Temperature 98 F 98.1 F Pulse Rate 98 H 74 86 Respiratory Rate 16 18 19 Blood Pressure 110/67 114/71 Pulse Oximetry 98 97 06/28/18 20:46 06/28/18 20:47 06/29/18 00:00 Temperature 98.0 F Pulse Rate 83 86 Respiratory Rate 16 17 Blood Pressure 121/86 Pulse Oximetry 95 92 L 06/29/18 04:00 06/29/18 07:00 06/29/18 07:38 Temperature 98.2 F Pulse Rate 88 100 H Respiratory Rate 17 16 Blood Pressure 149/87 H Pulse Oximetry 94 L 97 06/29/18 11:00 Temperature Pulse Rate 105 H Respiratory Rate 16 Blood Pressure Pulse Oximetry Intake & Output 06/28/18 06/29/18 06/29/18 18:59 06:59 18:59 Intake Total 1620 / 1620 341 / 341 Output Total 950 / 950 900 / 900 Balance 670 / 670 -559 / -559 Weight 94.8 kg Intake: IV 900 / 900 101 / 101 NS Inj 1,000 ML @ 50 mls/hr IV. 900 / 900 CONT .Q20H [facility] Rx#:[id number] Thiamine Inj 100 MG In NS Inj 101 / 101 100 ML @ 100 mls/hr IV.SIG Q24H [facility] Rx#:[id number] Oral 720 / 720 240 / 240 Output: Urine 950 / 950 900 / 900 Other: Date of Last Bowel Movement 06/26/18 06/29/18 06/29/18 - Constitutional no acute distress - Routine Neck Exam Absent: JVD - Routine Respiratory Exam Present: CTA bilaterally - Routine Cardiovascular Exam Present: S1, S2, irregularly irregular. Absent: murmur, gallop - Routine Abdominal Exam Present: soft, normoactive bowel sounds. Absent: tenderness - Routine Extremities Exam Absent: cyanosis, clubbing, edema Results 06/28/18 02:32 06/28/18 02:32 Cardiac Enzymes 06/28/18 Range/Units 02:32 AST 15 (15-37) U/L Coagulation 06/28/18 Range/Units 02:32 APTT 25.2 (24.3-30.1) sec CBC 06/28/18 Range/Units 02:32 WBC 17.8 H (4.0-11.0) th/mm3 RBC 4.64 (4.50-5.90) mil/mm3 Hgb 13.2 (13.0-17.0) gm/dL Hct 39.6 (39.0-51.0) % Plt Count 191 (150-450) th/mm3 Neut # (Auto) 16.7 H (1.8-7.7) th/mm3 Lymph # (Auto) 0.6 L (1.0-4.8) th/mm3 [place] # (Auto) 0.3 (0.0-0.9) th/mm3 Eos # (Auto) 0.0 (0.0-0.4) th/mm3 Baso # (Auto) 0.1 (0.0-0.2) th/mm3 Comprehensive Metabolic Panel 06/27/18 06/28/18 Range/Units 10:54 02:32 Sodium 140 (136-145) meq/L Potassium 4.4 (3.5-5.1) meq/L Chloride 107 (98-107) meq/L Carbon Dioxide 24.3 (21.0-32.0) meq/L BUN 23 H (7-18) mg/dL Creatinine 0.86 (0.60-1.30) mg/dL Calcium 8.1 L (8.5-10.1) mg/dL Direct Bilirubin 0.2 (0.0-0.2) mg/dL Indirect Bilirubin 0.4 (0.0-0.8) mg/dL AST 15 (15-37) U/L ALT 39 (12-78) U/L Alkaline Phosphatase 123 H (45-117) U/L Total Protein 6.4 D (6.4-8.2) g/dL Albumin 2.9 L (3.4-5.0) g/dL Intake and Output 06/28/18 06/29/18 06/29/18 22:59 06:59 14:59 Intake Total 1620 / 1620 341 / 341 Output Total 950 / 950 900 / 900 Balance 670 / 670 -559 / -559 Intake: IV 900 / 900 101 / 101 NS Inj 1,000 ML @ 50 mls/hr IV. 900 / 900 CONT .Q20H [facility] Rx#:[id number] Thiamine Inj 100 MG In NS Inj 101 / 101 100 ML @ 100 mls/hr IV.SIG Q24H [facility] Rx#:[id number] Oral 720 / 720 240 / 240 Output: Urine 950 / 950 900 / 900 Other: Date of Last Bowel Movement 06/26/18 06/29/18 06/29/18 Weight 94.8 kg - Imaging and Cardiology Imaging: Impressions Myocardial Perfusion Scan Nuc Med 06/29/18 00:00 CONCLUSION: No areas of ischemia are seen. Assessment and Plan - Assessment (1) Paroxysmal atrial fibrillation Code(s): I48.0 - Paroxysmal atrial fibrillation Status: Acute Plan: Remains in atrial fibrillation, overall controlled HR's on oral diltiazem. Echo unremarkable. Thromboembolic risk low. Recommend continue diltiazem, aspirin. OK for discharge from cardiac standpoint. (2) Elevated troponin Code(s): R74.8 - Abnormal levels of other serum enzymes Status: Acute Plan: No definite CP symptoms. Nuclear stress test and echo unremarkable. Slight increase in troponin possibly due to atrial fib. - Plan Code Status: full code Discussed Condition With: patient
[2018-06-29 12:35] VITALS: TEMP 98.2; O2SAT 96
[2018-06-29] MEDS: Sod Chloride 0.9% Inj 1,000 ML IV.CONT SCH (12:43)
[2018-06-29 17:28] VITALS: BP 129/59; PULSE 118; RESP 18
--- NOTE | 2018-06-29 17:48 | P.DS ---
Date of admission: 06/26/18 21:40 Primary care physician: No Primary Care Physician Brief History from admission: This patient is a 52-year-old male with a diagnosis of polysubstance abuse including methamphetamine, tobacco,, cocaine abuse and EtOH abuse. The patient also has COPD. He was transferred from [facility] due to a large infrarenal abdominal aortic aneurysm. He was having abdominal pain and bloating for about 3 weeks and his symptoms were progressively getting worse so he went to [facility] for evaluation. He was also found to be in A. fib with rapid ventricular rate. He was then sent to our facility as a transfer from [facility] for further evaluation and care of his large infrarenal aortic aneurysm. DS: Medications - Discharge Medications Prescriptions: albuterol sulfate [Ventolin HFA] 2 puff INH Q4H PRN #1 inhaler PRN Reason: Shortness Of Breath/Wheezing aspirin 81 mg PO DAILY #30 tab budesonide-formoterol [Symbicort] 2 puff INH BID #1 inhaler diltiazem HCl 60 mg PO QID #90 tab pravastatin 40 mg PO DAILY #30 tab prednisone 10 mg PO DAILY #9 tab DS: Summary Hospital Course: This patient is a 52-year-old male with a diagnosis of polysubstance abuse including methamphetamine, tobacco,, cocaine abuse and EtOH abuse. The patient also has COPD. He was transferred from [facility] due to a large infrarenal abdominal aortic aneurysm. He was having abdominal pain and bloating for about 3 weeks and his symptoms were progressively getting worse so he went to [facility] for evaluation. He was also found to be in A. fib with rapid ventricular rate. He was then sent to our facility as a transfer from [facility] for further evaluation and care of his large infrarenal aortic aneurysm. 1. Large asymptomatic infrarenal abdominal aortic aneurysm 2. New onset atrial fibrillation rate now controlled. 3. Hypertension The patient was found to have new onset atrial fibrillation, rate is now under control with Cardizem. Troponins were elevated which are possibly due to the atrial fibrillation as per cardiology. Imaging shows a large 7.2 x 7.5 x 10 cm aneurysm with a possible mural thrombus. Cardiology evaluated the patient and recommended a nuclear stress test which was done and is negative as per cardiology's note. They have cleared him for surgery this next week. The patient will have the procedure this week by vascular surgeon Dr. Hanna. Dr. Hanna is okay with the patient being discharged today and will see him in the OR this week for correction of the abdominal aortic aneurysm. I discussed this case in detail over the phone with Dr. Hanna yesterday. He will be continued on aspirin, statin, Cardizem. The patient's heart rate is currently under control. Blood pressure is stable. 3. COPD Patient is currently on room air without any complaints of shortness of breath. Initially he was started on IV Solu-Medrol and breathing treatments. He will be discharged with an albuterol inhaler as well as Symbicort. He will be given a prednisone taper on discharge. 4. Tobacco smoking Patient was counseled on tobacco smoking. The risks of continued tobacco smoking given the patient's history and current condition were discussed in detail with him. While in-house the patient was on thiamine, multivitamin, and folate, however he denies any recent history of alcohol abuse. He says that he only drank socially in his earlier years as well. He will be discharged home today and specific instructions on follow-up with Dr. Hanna were given to the patient. After the patient has surgery he can discuss future anticoagulation due to A. fib with the vascular surgeon. Prescription of the patient's medications were given to him prior to discharge. - Time Spent with Patient Total time spent providing and/or coordinating discharge services: Greater than 30 minutes - Quality: VTE Deep Vein Thrombosis/Pulmonary Embolism Present on Admission: Yes Exam Vital signs: Vital Signs 06/28/18 20:00 06/28/18 20:46 06/28/18 20:47 Temperature 98.1 F Pulse Rate 86 83 Respiratory Rate 19 16 Blood Pressure 114/71 Pulse Oximetry 97 95 06/29/18 00:00 06/29/18 04:00 06/29/18 07:00 Temperature 98.0 F 98.2 F Pulse Rate 86 88 100 H Respiratory Rate 17 17 16 Blood Pressure 121/86 149/87 H Pulse Oximetry 92 L 94 L 06/29/18 07:38 06/29/18 08:00 06/29/18 10:00 Temperature 98 F Pulse Rate 106 H 128 H Respiratory Rate 16 Blood Pressure 132/88 Pulse Oximetry 97 100 06/29/18 11:00 06/29/18 12:00 06/29/18 15:00 Temperature 98.2 F Pulse Rate 105 H 116 H 92 H Respiratory Rate 16 14 16 Blood Pressure 149/95 H Pulse Oximetry 96 06/29/18 16:00 Temperature 98.2 F Pulse Rate 118 H Respiratory Rate 18 Blood Pressure 129/59 L Pulse Oximetry 96 Intake & Output 06/28/18 06/29/18 06/29/18 18:59 06:59 18:59 Intake Total 1620 / 1620 341 / 341 900 / 900 Output Total 950 / 950 900 / 900 Balance 670 / 670 -559 / -559 900 / 900 Weight 94.8 kg Intake: IV 900 / 900 101 / 101 900 / 900 NS Inj 1,000 ML @ 50 mls/hr IV. 900 / 900 900 / 900 CONT .Q20H [facility] Rx#:[id number] Thiamine Inj 100 MG In NS Inj 101 / 101 100 ML @ 100 mls/hr IV.SIG Q24H [facility] Rx#:[id number] Oral 720 / 720 240 / 240 Output: Urine 950 / 950 900 / 900 Other: Date of Last Bowel Movement 06/26/18 06/29/18 06/29/18 Narrative: General patient in no acute distress HEENT extraocular movements are intact, clear oropharyngeal mucosa, no JVD Cardiovascular S1-S2 audible, irregularly irregular rhythm, no chest pain Respiratory clear to auscultation bilaterally Abdomen soft, nontender, nondistended, normal bowel sounds, no abdominal pain Extremities no edema 2+ distal pulses in bilateral upper and lower extremities Neuro cranial nerves II through XII intact Results Procedures completed during hospitalization: Cardiac nuclear stress test Labs on day of discharge: Labs from last 24 hours 06/29/18 06/29/18 06/29/18 12:20 06:46 00:15 POC Glucose 191 H 130 H 146 H 06/28/18 17:55 POC Glucose 140 H - Impressions ITS Impressions Chest X-Ray 06/27/18 00:00 CONCLUSION: Cardiomegaly. No acute pulmonary disease. Myocardial Perfusion Scan Nuc Med 06/29/18 00:00 CONCLUSION: No areas of ischemia are seen. Discharge Plan - Discharge Disposition Patient Disposition: Discharge Home - Discharge Condition Condition: Stable - Discharge Order Discharge Orders: Discharge Order (Routine); Ordered 06/29/18 Ordered By: Iveth Young Cardiology Clear for Discharge (Routine); Ordered 06/29/18 Ordered By: Sebastian Kennedy - Physicians Team Primary Care Provider: Primary Care Madie Donis Attending Provider: Iveth Young Other Providers: Sebastian Kennedy MD ; Brian Hanna MD - Rxs /Orders / Referrals /Forms Prescriptions: New albuterol sulfate [Ventolin HFA] 90 mcg/actuation Hfa Aerosol Inhaler 2 puff INH Q4H PRN (Reason: Shortness Of Breath/Wheezing) Qty: 1 RF: 0 aspirin 81 mg Tablet,Chewable 81 mg PO DAILY Qty: 30 RF: 0 budesonide-formoterol [Symbicort] 160-4.5 mcg/actuation Hfa Aerosol Inhaler 2 puff INH BID Qty: 1 RF: 0 diltiazem HCl 60 mg Tablet 60 mg PO QID Qty: 90 RF: 0 pravastatin 40 mg Tablet 40 mg PO DAILY Qty: 30 RF: 0 prednisone 10 mg Tablet 10 mg PO DAILY Qty: 9 RF: 0 Referrals: Primary Care Madie Donis [Primary Care Provider] - See Instructions Brian Hanna MD [Physician] - See Instructions - Discharge Instructions Patient Printed Instructions: A-fib (Atrial Fibrillation) (GEN), Nonruptured Abdominal Aortic Aneurysm (DC), Open Repair of Abdominal Aortic Aneurysm (GEN) Additional Instructions: Patient had a cardiac nuclear stress test which was negative today. He is to follow-up this week with vascular surgery Dr. Hanna for repair of his abdominal aortic aneurysm.
[2018-06-30] MEDS ORDERED: predniSONE 10 MG Tablet PO SCH (09:00)
== END 2018-06-29 18:30 | disposition home or self-care (01) ==
LOC: N03 21:40
PROVIDERS: ADMIT Hospitalist; ATTEND Hospitalist

== ENCOUNTER 2018-07-07 08:09 | Inpatient (IN) ==
[2018-07-07] MEDS ORDERED: Thrombin Topical 20,000 UNIT Spray Kit TOPICAL ONE (09:02)
[2018-07-07] MEDS ORDERED: Protamine Sulfate Inj 50 MG/5 ML Vial ONE ×2 (09:02→14:00)
[2018-07-07] MEDS ORDERED: Heparin 10,000 UNITS/10 ML Vial (for IV use) ONE (09:02)
[2018-07-07] MEDS ORDERED: Heparin - SQ 10,000 UNITS/ML Vial ONE (09:02)
[2018-07-07] MEDS ORDERED: ceFAZolin 2 GM Premix Inj 2 GM/50 ML PIGGYBACK IV.SIG ONE (09:03)
[2018-07-07] MEDS ORDERED: Heparin/NS PF Inj 500 ML ONE (09:03)
[2018-07-07] MEDS ORDERED: Metoprolol Tartrate 25 MG Tablet PO ONE (09:15)
[2018-07-07] MEDS ORDERED: Sodium Chlor 0.9% Inj 500 ML IV.CONT ONE (09:15)
[2018-07-07] MEDS ORDERED: Chlorhexidine Gluconate 2% 1 Pack (2 Cloths) TOPICAL ONE (09:15)
[2018-07-07] MEDS ORDERED: Normosol-R pH 7.4 Inj 2,000 ML IV.CONT ONE (10:35)
[2018-07-07] MEDS ORDERED: fentaNYL Citrate Inj 100 MCG/2 ML Ampul ONE ×3 (13:42→15:06)
--- NOTE | 2018-07-07 14:35 | P.OP ---
Date of procedure: 07/07/18 Procedure: Open repair of a juxtarenal abdominal aortic aneurysm Implants: 18 mm Dacron graft Anesthesia: [facility] Surgeon: Popeye Liao MD Front Desk Clerk: Brian Hanna Estimated blood loss (mL): 500 IV fluids (mL): 2,500 Operation and Findings: Indication 52-year-old male who presents with asymptomatic 7.5 cm juxtarenal abdominal aneurysm with a right accessory renal artery coming off the aneurysm sac. The patient options were fenestrated endograft versus open repair of his aneurysm. Given his young age, an open repair was offered to the patient. Risks benefits and alternatives were explained to the patient and he agreed to the procedure. Description of the procedure Patient was taken to the operating room placed supine in the OR table. After general endotracheal anesthesia the patient was positioned on his right lateral decub with a beanbag underneath him. Patient was prepped and draped in the standard sterile fashion. Timeout was called with all members in the operating room in agreement. A left retroperitoneal incision was made dissection was taken down through the subcutaneous tissue using electrocautery. The abdominal wall muscles were divided. The peritoneum was mobilized medially. In the retroperitoneum cavity was entered. The plane anterior to the left psoas muscle was entered and the ureter was identified and protected throughout the whole procedure. The aneurysm was dissected and left renal artery identified. The left hayes of the diaphragm was also divided to further dissected the posterior wall of the aorta. At this point the neck was dissected below the left renal artery. The bilateral common iliac artery also dissected. An accessory right renal artery was identified ligated and divided. Patient was heparinized proximal distal control obtained aneurysm sac was opened. Multiple lumbars were identified ligated. There was no retrograde bleeding from the inferior mesenteric artery. The graft was brought into the field and the proximal anastomosis was fashioned using 3-0 Prolene suture in a running fashion. Now attention was turned to the distal anastomosis. That was fashioned was using 3-0 Prolene suture in running fashion as well. Hemostasis achieved. The abdominal wall was closed approximating the fascia using a double -stranded PDS suture. The skin was closed multiple layers using Vicryl suture followed by Monocryl suture. Steri-Strips and a sterile dressing was applied. Patient tolerated the procedure well and taken to recovery in stable condition.
[2018-07-07] MEDS ORDERED: Bisacodyl 10 MG Supp RECTAL PRN (14:39)
[2018-07-07] MEDS ORDERED: Sugammadex Inj 200 MG/2 ML Vial IV.PUSH ONE (14:45)
[2018-07-07] MEDS: Sod Chloride 0.9% Inj 1,000 ML IV.CONT SCH ×2 (15:30→23:42)
--- NOTE | 2018-07-07 15:43 | XR ---
EXAM DATE: 07/07/2018 12:00 AM EDT AGE/SEX: 52 years / Male INDICATIONS: Central line placement CLINICAL DATA: This is the patient's subsequent encounter. Patient reports that signs and symptoms h ave been present for 2 days and indicates a pain score of Nonresponsive. MEDICAL/SURGICAL HISTORY: . Chronic obstructive pulmonary disease. Smoker. ETOH abuse. Methamp hetamine abuse. Cardiomegaly. None. COMPARISON: C, CHEST 1V SINGLE AP, 06/27/2018. . FINDINGS: Left IJ central line with tip in the proximal SVC. NGT coursing beyond the GE junction with tip omitt ed from the image. No significant pneumothorax. No new focal pleural or parenchymal opacities. Cardio mediastinal contours are stable. Remainder of the exam is unchanged. CONCLUSION: 1. Left IJ central line in the proximal SVC. No pneumothorax. 2. NGT beyond the GE junction. 3. Compensated cardiomegaly. Electronically signed by: Brenton Santa MD 07/07/2018 3:42 PM EDT
[2018-07-07 15:52] LABS: Calcium 7.5 mg/dL (8.5-10.1); Carbon Dioxide 28.1 meq/L (21.0-32.0); Potassium 4.3 meq/L (3.5-5.1)
[2018-07-07] MEDS ORDERED: Potassium Phosphate 500 MG Soluble Tablet PO PRN ×2 (16:40)
[2018-07-07] MEDS ORDERED: Magnesium Sulfate Inj 4 GM in Sodium Chlor 0.9% Inj 92 ML IV.SIG PRN (16:40)
[2018-07-07] MEDS ORDERED: Potassium Chloride 25 MEQ Effervescent Tablet PO PRN (16:40)
[2018-07-07] MEDS ORDERED: Potassium Chlor 40 mEq Premix 40 MEQ/100 ML PIGGYBACK IV.SIG PRN ×2 (16:40)
[2018-07-07] MEDS ORDERED: Potassium Phosphate Inj 30 MMOL in Sodium Chlor 0.9% Inj 250 ML IV.SIG PRN (16:40)
[2018-07-07] MEDS ORDERED: Magnesium Sulfate Inj 2 GM in Sodium Chlor 0.9% Inj 96 ML IV.SIG PRN (16:40)
[2018-07-07] MEDS ORDERED: Magnesium Oxide 400 MG Tablet PO PRN (16:40)
[2018-07-07] MEDS ORDERED: Potassium Chlor 20 mEq Premix 20 MEQ/100 ML PIGGYBACK IV.SIG PRN ×2 (16:40)
[2018-07-07] MEDS ORDERED: Sodium Phosphate Inj 30 MMOL in Sodium Chlor 0.9% Inj 250 ML IV.SIG PRN (16:40)
--- NOTE | 2018-07-07 16:45 | P.CONCC ---
History of Present Illness Service: Critical Care Medicine Consult date: 07/07/18 Requesting Physician: Popeye Liao Reason for Consult: perioperative management of medical comorbidities Primary Care Provider: No Primary Care Physician History of Present Illness: 52yM with juxtarenal aortic aneurysm underwent open repair via retroperitoneal incision. EBL was 500mL for which he received 2500mL crystalloid and 250mL cell saver. arrives to pacu and then cvicu in stable extubated condition. patient is somewhat somnolent and arousing from anesthesia, so complete ROS unobtainable. limited ROS negative for chest pain, sob, headache, nausea, vomiting, sore throat. Review of Systems unobtainable due to mental status (Arousing from anesthesia. Limited review of systems negative per HPI) PMFSH - History History Provided By: Patient, Medical Record - Medical History Medical History: Medical History (Last Reviewed 07/07/18 @ 18:47 by Viraj Brown MD) COPD (chronic obstructive pulmonary disease) History of ETOH abuse Marijuana abuse Methamphetamine abuse Overweight (BMI 25.0-29.9) Tobacco abuse - Surgical History Surgical History: Surgical History (Last Reviewed 07/07/18 @ 18:47 by Viraj Brown MD) No history of previous surgery - Family History Family History: Family History (Last Reviewed 07/07/18 @ 18:47 by Viraj Brown MD) Other No significant family history - Social History I have reviewed the patient's Social History: Yes - Tobacco History Second Hand Smoke Exposure: Yes Tobacco Use In Past 30 Days: Yes Smoking Status: Former smoker Tobacco Type: Cigarettes Packs Per Day: 1 years: 40 - Alcohol History How Often Do You Have a Drink Containing Alcohol: 2 to 4 times a month - Substance Use History Substance History: Active Abuse - Travel History Recent Travel in the [place] Within the Last 8 Weeks: No Recent Travel Out of the Country Within the Last 8 Weeks: No Medications and Allergies Active Medications: Active Medications Al Hydroxide/Mg Hydroxide (Milk Of Magnesia Liq) 30 ml PO Q12H PRN PRN Reason: Mild Constipation Bisacodyl (Dulcolax Supp) 10 mg RECTAL DAILY PRN PRN Reason: SEVERE CONSITIPATION Heparin Sodium (Porcine) (Heparin Inj) 5,000 units SQ Q8H [facility] Hydromorphone HCl (Dilaudid Pf Inj) 0.5 mg IV.PUSH Q4H PRN PRN Reason: pain 8-10 or not taking po Lactated Ringer's (Lr 1000 Ml Inj) 1,000 mls @ 30 mls/hr IV.CONT .Q24H ONE Stop: 07/08/18 09:14 Last Infusion: 07/07/18 12:13 Dose: Infused Sodium Chloride (Ns Inj) 500 mls @ 30 mls/hr IV.CONT .[id number] ONE Stop: 07/08/18 01:54 Last Admin: 07/07/18 09:10 Dose: Not Given Sodium Chloride (Ns Inj) 1,000 mls @ 125 mls/hr IV.CONT .Q8H [facility] Last Admin: 07/07/18 15:30 Dose: 125 mls/hr Magnesium Sulfate 4 gm/ Sodium (Chloride) 100 mls @ 50 mls/hr IV.SIG UNSCH PRN PRN Reason: For Magnesium 0.9 - 1.1 mg/dL Acetaminophen (Ofirmev Inj) 1,000 mg in 100 mls @ 400 mls/hr IV.SIG Q6H [facility] Stop: 07/09/18 11:14 Potassium Chloride (Kcl 40 Meq Premix Inj) 40 meq in 100 mls @ 25 mls/hr IV.SIG Q2H PRN PRN Reason: For Potassium 2.8 - 3.2 mEq/L Potassium Chloride (Kcl 20 Meq Premix Inj) 20 meq in 100 mls @ 50 mls/hr IV.SIG Q2H PRN PRN Reason: For Potassium 3.3 - 3.5 mEq/L Potassium Chloride (Kcl 40 Meq Premix Inj) 40 meq in 100 mls @ 25 mls/hr IV.SIG UNSCH PRN PRN Reason: For Potassium 3.3 - 3.5 mEq/L Potassium Chloride (Kcl 20 Meq Premix Inj) 20 meq in 100 mls @ 50 mls/hr IV.SIG Q2H PRN PRN Reason: For Potassium 2.8 - 3.2 mEq/L Potassium Phosphate 30 mmol/ (Sodium Chloride) 260 mls @ 42 mls/hr IV.SIG UNSCH PRN PRN Reason: SEE LABEL COMMENTS Sodium Phosphate 30 mmol/ (Sodium Chloride) 260 mls @ 42 mls/hr IV.SIG UNSCH PRN PRN Reason: For Phosphorus < 2.5 mg/dL Magnesium Sulfate 2 gm/ Sodium (Chloride) 100 mls @ 50 mls/hr IV.SIG UNSCH PRN PRN Reason: For Magnesium 1.2 - 1.6 mg/dL Lactulose (Lactulose Liq) 30 ml PO DAILY PRN PRN Reason: SEVERE CONSITIPATION Magnesium Oxide (Mag-Ox) 800 mg PO UNSCH PRN PRN Reason: For Magnesium 1.2 - 1.6 mg/dL Oxycodone HCl (Roxicodone) 5 mg PO Q4H PRN PRN Reason: PAIN SCALE 1 TO 5 Potassium Bicarb/Potassium Chloride (K-Lyte Cl Eff) 50 meq PO UNSCH PRN PRN Reason: For Potassium 3.3 - 3.5 mEq/L Potassium Phosphate (K-Phos Original) 2,000 mg PO Q4H PRN PRN Reason: Phosphorus Less Than 2.5 mg/dL Potassium Phosphate (K-Phos Original) 2,000 mg PO UNSCH PRN PRN Reason: SEE LABEL COMMENTS Senna/Docusate Sodium (Tish-Colace) 1 tab PO BID [facility] Sennosides (Senokot) 17.2 mg PO Q12H PRN PRN Reason: Moderate Constipation Sodium Chloride (Ns Flush) 2 ml IV.FLUSH PRN PRN PRN Reason: FLUSH AFTER USING IV ACCESS Allergies Allergy/AdvReac Type Severity Reaction Status Date / Time No Known Allergies Allergy Verified 07/07/18 08:57 Physical Exam Vital signs: Vital Signs 07/07/18 09:01 07/07/18 14:54 07/07/18 14:56 Temperature 36.8 C 36.6 C Pulse Rate 82 88 92 H Respiratory Rate 16 16 Blood Pressure 117/79 163/80 H Pulse Oximetry 97 98 97 07/07/18 15:00 07/07/18 15:15 07/07/18 15:30 Temperature Pulse Rate 92 H 85 82 Respiratory Rate 17 17 16 Blood Pressure 151/92 H 142/88 H 134/75 Pulse Oximetry 100 98 96 07/07/18 15:45 07/07/18 15:50 07/07/18 15:53 Temperature 36.5 C Pulse Rate 84 81 Respiratory Rate 17 16 Blood Pressure 117/76 Pulse Oximetry 94 L 97 07/07/18 16:15 Temperature Pulse Rate Respiratory Rate Blood Pressure 129/63 Pulse Oximetry Intake & Output 07/06/18 07/07/1807/07/18 18:59 06:59 18:59 Intake Total 4375 / 4375 Output Total 1220 / 1220 Balance 3155 / 3155 Weight 90.5 kg Intake: IV 1650 / 1650 Heparin/NS PF Inj 500 ML @ 0 500 / 500 mls/hr .ROUTE .STK-MED ONE Rx#: [id number] Mannitol Inj 100 ML @ 0 mls/hr 100 / 100 .ROUTE .STK-MED ONE Rx#: [id number] LR 1000 mL Inj 1,000 ML @ 30 1000 / 1000 mls/hr IV.CONT .Q24H [facility] Rx#: [id number] Ancef 2 GM Premix Inj 2 gm In 50 / 50 50 ml @ 0 mls/hr IV.SIG .STK- MED ONE Rx#:[id number] Anesthesia Amount 2500 / 2500 Cell Saver Amount 225 / 225 Output: Estimated Blood Loss 500 / 500 Urine Amount (Catheter) 720 / 720 Indwelling Temp Sensing 720 / 720 Catheter Other: Weight On Admission 90.5 kg Narrative: GENERAL: Middle-age male, lying in bed, arousing from anesthesia, somnolent but arousable HEENT: Normocephalic. Atraumatic. Pupils equal, round, reactive, conjugate. Mucous membranes are moist NECK: Trachea is midline. There is no JVD. Left subclavian introducer sheath in place, site clean dry and intact. CHEST: Nasal cannula oxygen. Equal chest rise. Unlabored. CARDIOVASCULAR: Normal rate, irregularly irregular rhythm. A. fib by telemetry. CVP of 5. ABDOMEN: Soft, appropriately tender to palpation, nondistended. No guarding. There is a left-sided flank incision with its dressing clean dry and intact without saturation. MUSCULOSKELETAL: Pulses 2+ in all 4 extremities. No peripheral edema. NEUROLOGICAL: RASS -2. Arousing from anesthesia. Awakens and follows commands x4. No focal deficits. - Urinary Catheter Management Indwelling Temp Sensing Catheter Cath placed during this visit: yes Reason for continuing: Hourly intake/output Insertion date: 07/07/18 Insertion time: 11:10 Assessment and Plan - Assessment and Plan Plan: Assessment: 52-year-old male postop day 0 status post open juxtarenal aortic aneurysm repair. Admit to ICU for frequent neurovascular checks and urine output monitoring. Aggressive pulmonary toilet. s/p open juxtarenal AAA repair 07/07 - frequent uop monitoring - keep potts - frequent neurovascular checks - mivf @ 125cc/hr Acute post-operative pain - iv tylenol q6h scheduled x 48h - breakthrough dilaudid 0.5mg iv q4h prn Hypertension - goal normotension - currently under adequate control Atrial fibrillation - currently rate controlled - holding anticoagulation s/p AAA repair - will leave timing of anticoagulation to vascular surgery NPO. ileus anticipated NGT to LIWS SCDs aggressive pulm toilet wean nc as tolerated AM CBC, BMP, electrolytes ICU electrolyte protocol. Critical Care Medicine will continue to follow along while patient remains in the CVICU.
[2018-07-07 18:00] LABS: Baso % (Auto) 0.1 % (0.0-2.0); Eos % (Auto) 0.2 % (0.0-4.0); Hematocrit 41.5 % (39.0-51.0); Hemoglobin 13.5 gm/dL (13.0-17.0); Lymph # (Auto) 1.2 th/mm3 (1.0-4.8); Lymph % (Auto) 5.4 % (9.0-44.0); Mean Corpuscular HGB Conc 32.5 % (32.0-36.0); Mean Corpuscular Hemoglobin 27.9 pg (27.0-34.0); Mean Corpuscular Volume 85.9 fL (80.0-100.0); Mean Platelet Volume 7.4 fL (7.0-11.0); Mono # (Auto) 1.1 th/mm3 (0.0-0.9); Mono % (Auto) 5.1 % (0.0-8.0); Neut # (Auto) 19.4 th/mm3 (1.8-7.7); Neut % (Auto) 89.2 % (16.0-70.0); Platelet Count 178 th/mm3 (150-450); Red Blood Count 4.83 mil/mm3 (4.50-5.90); Red Cell Distribution Width 15.2 % (11.6-17.2); White Blood Count 21.8 th/mm3 (4.0-11.0)
[2018-07-07] MEDS: Senna/Docusate Sodium 8.6/50 MG Tablet PO SCH (21:20)
[2018-07-07] MEDS: HYDROmorphone PF Inj 1 MG/ML Ampul IV.PUSH PRN (23:42)
[2018-07-08 05:35] LABS: Hematocrit 40.7 % (39.0-51.0); Hemoglobin 13.3 gm/dL (13.0-17.0); Mean Corpuscular HGB Conc 32.7 % (32.0-36.0); Mean Corpuscular Hemoglobin 28.1 pg (27.0-34.0); Mean Corpuscular Volume 85.8 fL (80.0-100.0); Platelet Count 160 th/mm3 (150-450); Red Blood Count 4.75 mil/mm3 (4.50-5.90); Red Cell Distribution Width 15.2 % (11.6-17.2); White Blood Count 14.8 th/mm3 (4.0-11.0)
[2018-07-08 05:52] LABS: Anion Gap 8 meq/L (5-15); Blood Urea Nitrogen 19 mg/dL (7-18); Calcium 7.9 mg/dL (8.5-10.1); Carbon Dioxide 25.8 meq/L (21.0-32.0); Chloride 106 meq/L (98-107); Glomerular Filtration Rate Greater Than 89 mL/min (>89); Glucose,Random 107 mg/dL (74-106); Phosphorus 2.8 mg/dL (2.5-4.9); Potassium 3.9 meq/L (3.5-5.1); Sodium 140 meq/L (136-145)
[2018-07-08] MEDS ORDERED: Metoprolol Inj 5 MG/5 ML Vial IV.PUSH PRN (07:51)
[2018-07-08] MEDS: Sod Chloride 0.9% Inj 1,000 ML IV.CONT SCH ×3 (08:06→23:51)
[2018-07-08] MEDS: HYDROmorphone PF Inj 1 MG/ML Ampul IV.PUSH PRN ×4 (08:07→23:44)
--- NOTE | 2018-07-08 08:07 | P.PNCC ---
Subjective Subjective Remarks/Hospital Course: 52yM with juxtarenal aortic aneurysm underwent open repair via retroperitoneal incision. EBL was 500mL for which he received 2500mL crystalloid and 250mL cell saver. arrives to pacu and then cvicu in stable extubated condition. patient is somewhat somnolent and arousing from anesthesia, so complete ROS unobtainable. limited ROS negative for chest pain, sob, headache, nausea, vomiting, sore throat. SUBJ 07/08: Lying in bed no acute distress. Heart rate varying from 120 -130 A. fib with RVR. IV metoprolol as needed ordered. Objective Vital Signs / I&O: Vital Signs 07/07/18 09:01 07/07/18 14:54 07/07/18 14:56 Temperature 98.3 F 97.8 F Pulse Rate 82 88 92 H Respiratory Rate 16 16 Blood Pressure 117/79 163/80 H Pulse Oximetry 97 98 97 07/07/18 15:00 07/07/18 15:15 07/07/18 15:30 Temperature Pulse Rate 92 H 85 82 Respiratory Rate 17 17 16 Blood Pressure 151/92 H 142/88 H 134/75 Pulse Oximetry 100 98 96 07/07/18 15:45 07/07/18 15:50 07/07/18 15:53 Temperature 97.7 F 97.6 F Pulse Rate 84 88 81 Respiratory Rate 17 16 16 Blood Pressure 117/76 123/78 Pulse Oximetry 94 L 91 L 07/07/18 15:55 07/07/18 16:15 07/07/18 17:00 Temperature 98.6 F Pulse Rate Respiratory Rate Blood Pressure 129/63 Pulse Oximetry 95 07/07/18 17:09 07/07/18 18:46 07/07/18 19:00 Temperature 98.3 F Pulse Rate 99 H Respiratory Rate 18 16 Blood Pressure 126/65 Pulse Oximetry 97 96 07/07/18 20:00 07/08/18 00:00 07/08/18 04:00 Temperature 98.5 F 98.4 F Pulse Rate 99 H 102 H 130 H Respiratory Rate 18 16 Blood Pressure 126/65 131/70 127/81 Pulse Oximetry 97 96 94 L 07/08/18 07:00 Temperature 98.2 F Pulse Rate 132 H Respiratory Rate 16 Blood Pressure 120/79 Pulse Oximetry 94 L Intake & Output 10/07/08/18 07/08/18 18:59 06:59 18:59 Intake Total 4475 / 4475 1209 / 1209 Output Total 1545 / 1545 1300 / 1300 Balance 2930 / 2930 -91 / -91 Weight 90.5 kg Intake: IV 1750 / 1750 1209 / 1209 Heparin/NS PF Inj 500 ML @ 0 500 / 500 mls/hr .ROUTE .STK-MED ONE Rx#: [id number] Mannitol Inj 100 ML @ 0 mls/hr 100 / 100 .ROUTE .STK-MED ONE Rx#: [id number] LR 1000 mL Inj 1,000 ML @ 30 1000 / 1000 mls/hr IV.CONT .Q24H [facility] Rx#: [id number] NS Inj 1,000 ML @ 125 mls/hr IV 1009 / 1009 .CONT .Q8H [facility] Rx#:[id number] Ofirmev Inj 1,000 mg In 100 ml 100 / 100 200 / 200 @ 400 mls/hr IV.SIG Q6H [facility] Rx# :[id number] Ancef 2 GM Premix Inj 2 gm In 50 / 50 50 ml @ 0 mls/hr IV.SIG .STK- MED ONE Rx#:[id number] Oral 0 / 0 Anesthesia Amount 2500 / 2500 Cell Saver Amount 225 / 225 Output: Estimated Blood Loss 500 / 500 Urine Amount (Catheter) 1045 / 1045 1000 / 1000 Indwelling Temp Sensing 1045 / 1045 1000 / 1000 Catheter Gastric Drainage 300 / 300 Nasogastric Tube 300 / 300 Other: # Bowel Movements 0 Weight On Admission 90.5 kg Result Diagrams: 07/08/18 05:20 07/08/18 05:20 Objective Remarks: GENERAL: Middle-age male, lying in bed, slightly somnolent but arousable HEENT: Normocephalic. Atraumatic. Pupils equal, round, reactive, conjugate. Mucous membranes are moist NECK: Trachea is midline. There is no JVD. Left subclavian introducer sheath in place, site clean dry and intact. CHEST: Nasal cannula oxygen. Equal chest rise. Unlabored. CARDIOVASCULAR: Normal rate, irregularly irregular rhythm. A. fib by telemetry , HR in 120-130. CVP of 5. ABDOMEN: Soft, appropriately tender to palpation, nondistended. There is a left- sided flank incision with its dressing clean dry and intact without saturation. MUSCULOSKELETAL: Pulses 2+ in all 4 extremities. No peripheral edema. NEUROLOGICAL: Alert awake. Follows commands x4. No focal deficits. Assessment and Plan - Assessment and Plan Plan: Assessment: 52-year-old male postop day 1 status post open juxtarenal aortic aneurysm repair. Admit to ICU for frequent neurovascular checks and urine output monitoring. Aggressive pulmonary toilet. s/p open juxtarenal AAA repair 07/07 - frequent uop monitoring, 2L. Since yesterday - keep potts - frequent neurovascular checks - mivf @ 125cc/hr Acute post-operative pain - iv tylenol q6h scheduled x 48h - breakthrough dilaudid 0.5mg iv q4h prn Hypertension - goal normotension - currently under adequate control Atrial fibrillation with RVR - IV metoprolol 2.5 mg every 6 hours as needed for heart rate more than 120 - holding anticoagulation s/p AAA repair - will leave timing of anticoagulation to vascular surgery - Resume Cardizem once p.o. permitted by vascular surgery, otherwise start Cardizem infusion NPO. ileus anticipated NGT to LIWS SCDs aggressive pulm toilet, resume home inhalers wean nc as tolerated AM CBC, BMP, electrolytes ICU electrolyte protocol. Critical Care Medicine will continue to follow along while patient remains in the CVICU. Level 3
[2018-07-08] MEDS: Senna/Docusate Sodium 8.6/50 MG Tablet PO SCH ×2 (08:31→21:11)
--- NOTE | 2018-07-08 08:44 | P.PNVS ---
Subjective Post Op Day #: 1 Procedure: Open repair of a juxtarenal abdominal aneurysm Subjective/Hospital Course: Sitting up in bed comfortably. Pain is well controlled Passing flatus. Objective Neuro: Patient is alert awake oriented x3 with no neurological deficits. Pulmonary: O2 sat 95% 2 L nasal cannula. Clear to auscultation bilaterally with a mild decrease in breath sounds on the left Cardiac: Blood pressure is 130-150 systolic. His heart rate ranged from 110-130. s1,s2 Hemoglobin is 13 FEN/GI: Passing flatus NG tube with minimal output mostly ice chips. Abdomen soft nondistended, with mild tenderness at incision site. Incision dressing is clean dry intact : Curtis with clear urine output, good urine output throughout the whole night Patient's creatinine is 0.71 ID Antibiotics (date/duration): Leukocytosis is resolving most likely postsurgical. Afebrile with no signs of infection Vascular: Palpable femoral pulses bilateral Laboratory Results - last 24 hr 07/07/18 07/07/18 07/07/18 08:49 08:52 15:20 WBC RBC Hgb Hct MCV MCH MCHC RDW Plt Count MPV Neut % (Auto) Lymph % (Auto) [place] % (Auto) Eos % (Auto) Baso % (Auto) Neut # (Auto) Lymph # (Auto) [place] # (Auto) Eos # (Auto) Baso # (Auto) WBC Differential Differential Comment Sodium 141 Potassium 4.3 Chloride 104 Carbon Dioxide 28.1 Anion Gap 9 BUN 22 H Creatinine 0.93 Estimated GFR 85 L Random Glucose 107 H Calcium 7.5 L Phosphorus Magnesium Blood Type A Positive Antibody Screen Negative MTS Gel Crossmatch See Detail Blood Bank Comment 07/07/18 07/08/18 07/08/18 16:55 05:20 05:20 WBC 21.8 H 14.8 H RBC 4.83 4.75 Hgb 13.5 13.3 Hct 41.5 40.7 MCV 85.9 85.8 MCH 27.9 28.1 MCHC 32.5 32.7 RDW 15.2 15.2 Plt Count 178 160 MPV 7.4 7.0 Neut % (Auto) 89.2 H Lymph % (Auto) 5.4 L [place] % (Auto) 5.1 Eos % (Auto) 0.2 Baso % (Auto) 0.1 Neut # (Auto) 19.4 H Lymph # (Auto) 1.2 [place] # (Auto) 1.1 H Eos # (Auto) 0.0 Baso # (Auto) 0.0 WBC Differential . Differential Comment Auto diff final Sodium 140 Potassium 3.9 Chloride 106 Carbon Dioxide 25.8 Anion Gap 8 BUN 19 H Creatinine 0.72 Estimated GFR Greater than 89 Random Glucose 107 H Calcium 7.9 L Phosphorus 2.8 Magnesium 2.0 Blood Type Antibody Screen MTS Gel Crossmatch Blood Bank Comment Impressions Chest X-Ray 07/07/18 00:00 CONCLUSION: 1. Left IJ central line in the proximal SVC. No pneumothorax. 2. NGT beyond the GE junction. 3. Compensated cardiomegaly. Assessment and Plan - Plan Status post juxtarenal abdominal aneurysm repair DC NG tube, start clear liquid diet. Out of bed today. We will keep central line, A-line, Curtis for monitoring.
[2018-07-08] MEDS ORDERED: dilTIAZem Inj 125 MG in Sodium Chlor 0.9% Inj 100 ML IV.CONT PRN (09:00)
[2018-07-08] MEDS: Budesonide-Formoterol 160/4.5 MCG 6 GM Inhaler INH SCH ×2 (10:07→21:12)
[2018-07-08 11:04] LABS: Baso % (Auto) 0.3 % (0.0-2.0); Eos % (Auto) 0.1 % (0.0-4.0); Hematocrit 38.5 % (39.0-51.0); Hemoglobin 12.8 gm/dL (13.0-17.0); Lymph # (Auto) 1.3 th/mm3 (1.0-4.8); Lymph % (Auto) 8.3 % (9.0-44.0); Mean Corpuscular HGB Conc 33.4 % (32.0-36.0); Mean Corpuscular Hemoglobin 28.4 pg (27.0-34.0); Mean Platelet Volume 7.5 fL (7.0-11.0); Mono # (Auto) 0.8 th/mm3 (0.0-0.9); Mono % (Auto) 4.8 % (0.0-8.0); Neut # (Auto) 13.9 th/mm3 (1.8-7.7); Neut % (Auto) 86.5 % (16.0-70.0); Platelet Count 167 th/mm3 (150-450); Red Blood Count 4.52 mil/mm3 (4.50-5.90); Red Cell Distribution Width 14.7 % (11.6-17.2)
[2018-07-08 11:19] LABS: Calcium 7.8 mg/dL (8.5-10.1); Carbon Dioxide 22.2 meq/L (21.0-32.0); Potassium 3.8 meq/L (3.5-5.1)
[2018-07-08] MEDS: Heparin - SQ 10,000 UNITS/ML Vial SQ SCH ×2 (14:09→21:11)
[2018-07-08] MEDS: dilTIAZem 60 MG Tablet PO SCH ×3 (15:07→21:11)
[2018-07-09] MEDS: HYDROmorphone PF Inj 1 MG/ML Ampul IV.PUSH PRN ×4 (04:33→21:30)
[2018-07-09 05:03] LABS: Hematocrit 35.5 % (39.0-51.0); Hemoglobin 11.6 gm/dL (13.0-17.0); Mean Corpuscular HGB Conc 32.5 % (32.0-36.0); Mean Corpuscular Hemoglobin 27.7 pg (27.0-34.0); Mean Corpuscular Volume 85.3 fL (80.0-100.0); Mean Platelet Volume 7.4 fL (7.0-11.0); Platelet Count 136 th/mm3 (150-450); Red Blood Count 4.16 mil/mm3 (4.50-5.90); Red Cell Distribution Width 15.1 % (11.6-17.2); White Blood Count 20.8 th/mm3 (4.0-11.0)
[2018-07-09] MEDS: Heparin - SQ 10,000 UNITS/ML Vial SQ SCH ×3 (06:09→21:48)
[2018-07-09 06:10] LABS: Anion Gap 7 meq/L (5-15); Blood Urea Nitrogen 13 mg/dL (7-18); Calcium 7.4 mg/dL (8.5-10.1); Carbon Dioxide 25.9 meq/L (21.0-32.0); Chloride 105 meq/L (98-107); Glomerular Filtration Rate Greater Than 89 mL/min (>89); Glucose,Random 96 mg/dL (74-106); Magnesium 1.9 mg/dL (1.5-2.5); Phosphorus 1.5 mg/dL (2.5-4.9); Potassium 3.7 meq/L (3.5-5.1); Sodium 138 meq/L (136-145)
[2018-07-09] MEDS: Sod Chloride 0.9% Inj 1,000 ML IV.CONT SCH ×3 (06:10→21:49)
[2018-07-09 06:22] LABS: Total Protein 5.3 g/dL (6.4-8.2)
[2018-07-09] MEDS ORDERED: Potassium Chloride 25 MEQ Effervescent Tablet PO ONE (07:35)
[2018-07-09] MEDS ORDERED: Mag Sulf 1 gm/100 ml Premix 100 ML IV.SIG ONE (07:35)
--- NOTE | 2018-07-09 07:43 | P.PNCC ---
Subjective Subjective Remarks/Hospital Course: 52yM with juxtarenal aortic aneurysm underwent open repair via retroperitoneal incision. EBL was 500mL for which he received 2500mL crystalloid and 250mL cell saver. arrives to pacu and then cvicu in stable extubated condition. patient is somewhat somnolent and arousing from anesthesia, so complete ROS unobtainable. limited ROS negative for chest pain, sob, headache, nausea, vomiting, sore throat. SUBJ 07/08: Lying in bed no acute distress. Heart rate varying from 120 -130 A. fib with RVR. IV metoprolol as needed ordered. 07/09: Remains intermittently in A. fib with RVR heart rate 115-130. Earlier this month was seen by Dr. Kennedy for paroxysmal A. fib. Per Dr. Kennedy thromboembolic risk low. Recommended diltiazem, aspirin. I will increase Cardizem to 90 mg 4 times daily, add metoprolol 25 twice daily. Keep potassium more than 4 magnesium more than 2 Objective Vital Signs / I&O: Vital Signs 07/08/18 08:00 07/08/18 08:45 07/08/18 11:00 Temperature 98.4 F Pulse Rate 115 H Respiratory Rate 18 Blood Pressure 106/68 Pulse Oximetry 97 96 93 L 07/08/18 13:00 07/08/18 15:00 07/08/18 18:45 Temperature 98.6 F Pulse Rate 95 H Respiratory Rate 18 0 L Blood Pressure 119/74 Pulse Oximetry 93 L 96 07/08/18 19:00 07/08/18 19:56 07/08/18 23:00 Temperature 98.7 F 98.5 F Pulse Rate 104 H 74 Respiratory Rate 22 18 Blood Pressure 115/66 105/56 L Pulse Oximetry 95 95 93 L 07/09/18 03:00 07/09/18 07:15 Temperature 98.3 F Pulse Rate 90 105 H Respiratory Rate 20 Blood Pressure 136/72 Pulse Oximetry 93 L Intake & Output 07/08/18 07/09/18 07/09/18 18:59 06:59 18:59 Intake Total 3000 / 3000 2680 / 2680 Output Total 1030 / 1030 740 / 740 Balance 1969 / 1969 194 / 1939 Intake: IV 2200 / 2200 2200 / 2200 NS Inj 1,000 ML @ 125 mls/hr IV 1999 .CONT .Q8H [facility] Rx#:[id number] Ofirmev Inj 1,000 mg In 100 ml 200 / 200 200 / 200 @ 400 mls/hr IV.SIG Q6H [facility] Rx# :[id number] Oral 800 / 800 480 / 480 Output: Urine Amount (Catheter) 1030 / 1030 740 / 740 Indwelling Temp Sensing 1030 / 1030 740 / 740 Catheter Other: Date of Last Bowel Movement 07/07/18 # Bowel Movements 0 0 Result Diagrams: 07/09/18 04:45 07/09/18 04:45 Objective Remarks: GENERAL: Middle-age male, lying in bed, slightly awake alert HEENT: Normocephalic. Atraumatic. Pupils equal, round, reactive, conjugate. Mucous membranes are moist NECK: Trachea is midline. There is no JVD. Left subclavian introducer sheath in place, site clean dry and intact. CHEST: Nasal cannula oxygen. Equal chest rise. Unlabored. CARDIOVASCULAR: Tachycardic rate, irregularly irregular rhythm. A. fib by telemetry, HR in 115-130. CVP of 5. ABDOMEN: Soft, appropriately tender to palpation, nondistended. There is a left- sided flank incision with its dressing clean dry and intact without saturation. MUSCULOSKELETAL: Pulses 2+ in all 4 extremities. No peripheral edema. NEUROLOGICAL: Alert awake. Follows commands x4. No focal deficits. Assessment and Plan - Assessment and Plan Plan: Assessment: 52-year-old male postop day 2 status post open juxtarenal aortic aneurysm repair. In ICU for frequent neurovascular checks and urine output monitoring. Aggressive pulmonary toilet. s/p open juxtarenal AAA repair 07/07 - frequent uop monitoring, 1.7 L in 24 hours. -Discontinue Curtis if okay with Dr. Liao - frequent neurovascular checks - mivf @ 125cc/hr-decrease to 75 cc per hour Acute post-operative pain - iv tylenol q6h scheduled x 48h - breakthrough dilaudid 0.5mg iv q4h prn Hypertension - goal normotension - currently under adequate control -See below for Cardizem and metoprolol dosing Atrial fibrillation with RVR History of paroxysmal A. fib - IV metoprolol 2.5 mg every 6 hours as needed for heart rate more than 120 - holding anticoagulation s/p AAA repair - will leave timing of anticoagulation to vascular surgery - Increase Cardizem to 90 mg 4 times daily - Add metoprolol 25 mg twice daily - Seen by Dr. Kennedy earlier this month for paroxysmal A. fib, low risk for thromboembolism recommended aspirin and Cardizem - 2D echo was unremarkable -Keep potassium more than 4, keep magnesium more than 2 Leukocytosis -Nonspecific, likely postop reactive -Check UA, cultures if indicated -Discontinue central line today -If okay with Dr. Liao, discontinue Curtis and art line Clear liquid diet, advance as tolerated SCDs aggressive pulm toilet, home inhalers wean nc as tolerated AM CBC, CMP ICU electrolyte protocol. Critical Care Medicine will continue to follow along while patient remains in the CVICU. Level 3 Code Status: Full
[2018-07-09] MEDS: Metoprolol Tartrate 25 MG Tablet PO SCH ×2 (08:33→21:48)
[2018-07-09] MEDS: Budesonide-Formoterol 160/4.5 MCG 6 GM Inhaler INH SCH ×2 (08:34→21:49)
[2018-07-09] MEDS: Senna/Docusate Sodium 8.6/50 MG Tablet PO SCH ×2 (08:34→21:48)
[2018-07-09] MEDS: dilTIAZem 60 MG Tablet PO SCH ×4 (08:34→21:48)
--- NOTE | 2018-07-09 18:38 | P.PNVS ---
Subjective Post Op Day #: 2 Procedure: Open repair of a juxtarenal abdominal aneurysm Subjective/Hospital Course: Sitting up in bed comfortably. Pain is well controlled Passing flatus. Objective Vital Signs / I&O: Vital Signs 07/08/18 18:45 07/08/18 19:00 07/08/18 19:56 Temperature 98.7 F Pulse Rate 104 H Respiratory Rate 0 L 22 Blood Pressure 115/66 Pulse Oximetry 95 95 07/08/18 23:00 07/09/18 03:00 07/09/18 07:00 Temperature 98.5 F 98.3 F 100.4 F H Pulse Rate 74 90 105 H Respiratory Rate 18 20 21 Blood Pressure 105/56 L 136/72 151/77 H Pulse Oximetry 93 L 93 L 98 07/09/18 07:15 07/09/18 08:18 07/09/18 09:03 Temperature Pulse Rate 105 H Respiratory Rate 22 Blood Pressure Pulse Oximetry 94 L 07/09/18 09:10 07/09/18 11:00 07/09/18 15:00 Temperature 100.6 F H 99.2 F Pulse Rate 99 H 77 Respiratory Rate 20 20 20 Blood Pressure 99/55 L 113/57 L Pulse Oximetry 96 93 L Intake & Output 07/08/18 07/09/18 07/09/18 18:59 06:59 18:59 Intake Total 3000 / 3000 2680 / 2680 820 / 820 Output Total 1030 / 1030 740 / 740 650 / 650 Balance 1969 / 1969 1940 / 1939 170 / 170 Intake: IV 2200 / 2200 2200 / 2200 100 / 100 NS Inj 1,000 ML @ 125 mls/hr IV 1999 / 1999 1999 / 1999 .CONT .Q8H [facility] Rx#:[id number] Ofirmev Inj 1,000 mg In 100 ml 200 / 200 200 / 200 @ 400 mls/hr IV.SIG Q6H [facility] Rx# :[id number] Magnesium Sulfate 1 gm/D5W 100 100 / 100 ml Premix 100 ML @ 100 mls/hr IV.SIG ONCE ONE Rx#:[id number] Oral 800 / 800 480 / 480 720 / 720 Output: Urine 650 / 650 Urine Amount (Catheter) 1030 / 1030 740 / 740 Indwelling Temp Sensing 1030 / 1030 740 / 740 Catheter Other: Date of Last Bowel Movement 07/07/18 07/07/18 # Bowel Movements 0 0 0 Exam: abdomen soft NT, ND, wound CDI Laboratory Results - last 24 hr 07/09/18 07/09/18 07/09/18 04:45 04:45 04:45 WBC 20.8 H RBC 4.16 L Hgb 11.6 L Hct 35.5 L MCV 85.3 MCH 27.7 MCHC 32.5 RDW 15.1 Plt Count 136 L MPV 7.4 Sodium 138 Potassium 3.7 Chloride 105 Carbon Dioxide 25.9 Anion Gap 7 BUN 13 Creatinine 0.75 Estimated GFR Greater than 89 Random Glucose 96 Calcium 7.4 L* Prot Corrected Calcium 8.4 L Phosphorus 1.5 L D Magnesium 1.9 Total Protein 5.3 L TSH 0.442 Assessment and Plan - Assessment (1) AAA (abdominal aortic aneurysm) without rupture Code(s): I71.4 - Abdominal aortic aneurysm, without rupture Status: Acute - Plan Status post juxtarenal abdominal aneurysm repair Doing well Advance diet DC potts and A line and transfer to stepdown
[2018-07-10 00:45] LABS: Bacteria,Urine Rare /hpf; Bilirubin,Urine Negative (Negative); Clarity,Urine Clear (Clear); Color,Urine Yellow (Yellw/Straw); Glucose,Urine (UA) Negative (Negative); Hyaline Casts,Urine 1 /lpf (0-3); Leukocyte Esterase,Urine Negative (Negative); Mucus,Urine Few /lpf (Occasional); Nitrite,Urine Negative (Negative); Specific Gravity,Urine 1.019 (1.002-1.035); Squamous Epithelial Cell,Urine <1 /hpf (0-5)
[2018-07-10] MEDS: HYDROmorphone PF Inj 1 MG/ML Ampul IV.PUSH PRN ×3 (02:58→17:30)
[2018-07-10 04:23] LABS: Hematocrit 31.1 % (39.0-51.0); Hemoglobin 10.5 gm/dL (13.0-17.0); Mean Corpuscular HGB Conc 33.9 % (32.0-36.0); Mean Corpuscular Hemoglobin 28.2 pg (27.0-34.0); Mean Corpuscular Volume 83.3 fL (80.0-100.0); Mean Platelet Volume 7.7 fL (7.0-11.0); Platelet Count 132 th/mm3 (150-450); Red Blood Count 3.73 mil/mm3 (4.50-5.90); Red Cell Distribution Width 14.9 % (11.6-17.2)
[2018-07-10 04:44] LABS: Albumin 2.2 g/dL (3.4-5.0); Anion Gap 8 meq/L (5-15); Aspartate Aminotransferase 41 U/L (15-37); Blood Urea Nitrogen 16 mg/dL (7-18); Carbon Dioxide 25.3 meq/L (21.0-32.0); Chloride 102 meq/L (98-107); Glomerular Filtration Rate Greater Than 89 mL/min (>89); Glucose,Random 108 mg/dL (74-106); Magnesium 1.8 mg/dL (1.5-2.5); Potassium 3.7 meq/L (3.5-5.1); Sodium 135 meq/L (136-145)
[2018-07-10 04:45] LABS: Alanine Aminotransferase 41 U/L (12-78); Phosphorus 2.3 mg/dL (2.5-4.9)
[2018-07-10 04:47] LABS: Alkaline Phosphatase 88 U/L (45-117); Total Protein 5.7 g/dL (6.4-8.2)
[2018-07-10] MEDS: Heparin - SQ 10,000 UNITS/ML Vial SQ SCH ×3 (07:08→21:54)
[2018-07-10] MEDS: Sod Chloride 0.9% Inj 1,000 ML IV.CONT SCH ×3 (07:22→21:55)
[2018-07-10] MEDS: dilTIAZem 60 MG Tablet PO SCH ×4 (08:29→21:52)
[2018-07-10] MEDS: Senna/Docusate Sodium 8.6/50 MG Tablet PO SCH ×2 (08:29→21:54)
[2018-07-10] MEDS: Metoprolol Tartrate 25 MG Tablet PO SCH ×2 (08:30→21:54)
[2018-07-10] MEDS: Budesonide-Formoterol 160/4.5 MCG 6 GM Inhaler INH SCH ×2 (08:31→21:54)
--- NOTE | 2018-07-10 11:00 | P.PNVS ---
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 Pain is well controlled Passing flatus. Objective Vital Signs / I&O: Vital Signs 07/09/18 11:00 07/09/18 15:00 07/09/18 19:00 Temperature 100.6 F H 99.2 F 99.8 F H Pulse Rate 99 H 77 90 Respiratory Rate 20 20 22 Blood Pressure 99/55 L 113/57 L 127/61 Pulse Oximetry 96 93 L 94 L 07/09/18 22:30 07/09/18 23:00 07/10/18 03:00 Temperature 99.2 F 99.5 F Pulse Rate 74 74 Respiratory Rate 22 22 22 Blood Pressure 104/59 L 110/51 L Pulse Oximetry 94 L 93 L 07/10/18 07:00 07/10/18 07:45 07/10/18 08:00 Temperature 98.3 F Pulse Rate 94 H 88 96 H Respiratory Rate 18 Blood Pressure 125/71 Pulse Oximetry 95 07/10/18 09:00 07/10/18 10:00 07/10/18 10:46 Temperature 98.4 F Pulse Rate 96 H 94 H 86 Respiratory Rate 18 Blood Pressure 116/73 Pulse Oximetry 94 L Intake & Output 07/09/18 07/10/18 07/10/18 18:59 06:59 18:59 Intake Total 920 / 920 480 / 480 Output Total 650 / 650 400 / 400 Balance 270 / 270 80 / 80 Weight 96 kg Intake: IV 200 / 200 Ofirmev Inj 1,000 mg In 100 ml 100 / 100 @ 400 mls/hr IV.SIG Q6H [facility] Rx# :[id number] Magnesium Sulfate 1 gm/D5W 100 100 / 100 ml Premix 100 ML @ 100 mls/hr IV.SIG ONCE ONE Rx#:[id number] Oral 720 / 720 480 / 480 Output: Urine 650 / 650 400 / 400 Other: Date of Last Bowel Movement 07/07/18 07/10/18 # Bowel Movements 0 Exam: Palpable femoral pulses bilaterally, abdomen soft mildly distended nontender. Wound is clean dry intact Laboratory Results - last 24 hr 07/07/18 07/10/18 07/10/18 08:52 00:00 03:43 WBC 18.0 H RBC 3.73 L Hgb 10.5 L Hct 31.1 L MCV 83.3 MCH 28.2 MCHC 33.9 RDW 14.9 Plt Count 132 L MPV 7.7 Sodium Potassium Chloride Carbon Dioxide Anion Gap BUN Creatinine Estimated GFR Random Glucose Calcium Phosphorus Magnesium Total Bilirubin AST ALT Alkaline Phosphatase Total Protein Albumin Urine Color Yellow Urine Clarity Clear Urine pH 6.0 Ur Specific [place] 1.019 Urine Protein Negative Urine Glucose (UA) Negative Urine Ketones Negative Urine Occult Blood Moderate H Urine Nitrate Negative Urine Bilirubin Negative Urine Urobilinogen 2.0 H Ur Leukocyte Esterase Negative Urine RBC 18 H Urine WBC 5 Ur Squamous Epith Cells <1 Urine Bacteria Rare H Hyaline Casts 1 Urine Mucus Few H Micro UA Comment Culture not ind Ur Microscopic Review Not Reportable Urine Culture Comments Culture not ind MTS Gel Crossmatch See Detail 07/10/18 03:43 WBC RBC Hgb Hct MCV MCH MCHC RDW Plt Count MPV Sodium 135 L Potassium 3.7 Chloride 102 Carbon Dioxide 25.3 Anion Gap 8 BUN 16 Creatinine 0.81 Estimated GFR Greater than 89 Random Glucose 108 H Calcium 8.0 L Phosphorus 2.3 L Magnesium 1.8 Total Bilirubin 0.7 AST 41 H ALT 41 Alkaline Phosphatase 88 Total Protein 5.7 L Albumin 2.2 L Urine Color Urine Clarity Urine pH Ur Specific [place] Urine Protein Urine Glucose (UA) Urine Ketones Urine Occult Blood Urine Nitrate Urine Bilirubin Urine Urobilinogen Ur Leukocyte Esterase Urine RBC Urine WBC Ur Squamous Epith Cells Urine Bacteria Hyaline Casts Urine Mucus Micro UA Comment Ur Microscopic Review Urine Culture Comments MTS Gel Crossmatch Assessment and Plan - Assessment (1) AAA (abdominal aortic aneurysm) without rupture Code(s): I71.4 - Abdominal aortic aneurysm, without rupture Status: Acute - Plan Status post juxtarenal abdominal aneurysm repair Doing well Tolerating diet Ambulate, wean off IV pain medications Possible DC home tomorrow
[2018-07-10 20:23] VITALS: RESP 16
[2018-07-11 05:15] LABS: Hematocrit 30.4 % (39.0-51.0); Mean Corpuscular HGB Conc 32.9 % (32.0-36.0); Mean Corpuscular Hemoglobin 28.1 pg (27.0-34.0); Mean Corpuscular Volume 85.4 fL (80.0-100.0); Mean Platelet Volume 7.9 fL (7.0-11.0); Platelet Count 151 th/mm3 (150-450); Red Blood Count 3.56 mil/mm3 (4.50-5.90); Red Cell Distribution Width 15.1 % (11.6-17.2)
[2018-07-11] MEDS: Heparin - SQ 10,000 UNITS/ML Vial SQ SCH (05:23)
[2018-07-11 05:41] LABS: Anion Gap 6 meq/L (5-15); Blood Urea Nitrogen 19 mg/dL (7-18); Calcium 8.3 mg/dL (8.5-10.1); Carbon Dioxide 28.1 meq/L (21.0-32.0); Chloride 102 meq/L (98-107); Glomerular Filtration Rate Greater Than 89 mL/min (>89); Glucose,Random 105 mg/dL (74-106); Magnesium 1.9 mg/dL (1.5-2.5); Phosphorus 3.4 mg/dL (2.5-4.9); Potassium 3.6 meq/L (3.5-5.1); Sodium 136 meq/L (136-145)
[2018-07-11] MEDS: Sod Chloride 0.9% Inj 1,000 ML IV.CONT SCH (06:05)
[2018-07-11] MEDS: Metoprolol Tartrate 25 MG Tablet PO SCH (08:28)
[2018-07-11] MEDS: dilTIAZem 60 MG Tablet PO SCH (08:28)
[2018-07-11] MEDS: Senna/Docusate Sodium 8.6/50 MG Tablet PO SCH (08:29)
[2018-07-11] MEDS: Budesonide-Formoterol 160/4.5 MCG 6 GM Inhaler INH SCH (08:30)
[2018-07-11 09:10] VITALS: O2SAT 94
[2018-07-11 11:42] VITALS: BP 107/62; PULSE 90; TEMP 98
--- NOTE | 2018-07-24 10:39 | P.DS ---
Discharge Summary - Admission Date 07/07/18 08:09 - Discharge Date 08/11/18 - Discharge Diagnosis (1) AAA (abdominal aortic aneurysm) without rupture Status: Chronic - Summary Brief History from admission: 52-year-old male who was admitted for elective repair of a juxtarenal abdominal aneurysm. Procedure: Open repair of a juxtarenal abdominal aneurysm Significant Findings: Juxtarenal abdominal aneurysm that was repaired successfully. Hospital Course: 52-year-old male who underwent successful open repair of his juxtarenal abdominal aortic aneurysm. His procedure went uneventfully. He has an unconjugated hospital course with 2-day stay in the ICU for postop monitoring and 3-day stay in the surgical floor for postop care. He was discharged home in stable condition. - Discharge Instructions The patient was discharged home he was given instructions regarding his wound care. He is scheduled for follow-up visit in 2 weeks. Any questions or concerns: Call [facility] [phone] Discharge Plan - Discharge Disposition Patient Disposition: Discharge Home - Discharge Condition Condition: Good - Discharge Order Discharge Orders: Discharge Order (Routine); Ordered 07/11/18 Ordered By: Popeye Liao - Physicians Team Primary Care Provider: Primary Care Madie Donis Attending Provider: Popeye Liao Other Providers: Viraj Brown MD - Rxs /Orders / Referrals /Forms Prescriptions: New oxycodone-acetaminophen [Percocet] 5-325 mg Tablet 2 tab PO Q4-6H PRN (Reason: Pain) Qty: 15 RF: 0 Continue albuterol sulfate [Ventolin HFA] 90 mcg/actuation Hfa Aerosol Inhaler 2 puff INH Q4H PRN (Reason: Shortness Of Breath/Wheezing) Qty: 1 RF: 0 aspirin 81 mg Tablet,Chewable 81 mg PO DAILY Qty: 30 RF: 0 budesonide-formoterol [Symbicort] 160-4.5 mcg/actuation Hfa Aerosol Inhaler 2 puff INH BID Qty: 1 RF: 0 diltiazem HCl 60 mg Tablet 60 mg PO QID Qty: 90 RF: 0 pravastatin 40 mg Tablet 40 mg PO DAILY Qty: 30 RF: 0 prednisone 10 mg Tablet 10 mg PO DAILY Qty: 9 RF: 0 Referrals: Popeye Liao MD [Physician] - See Instructions (Your post operative follow up w/ a surveillance CTA C/A/P is scheduled on 07/23 @ 8:[address] prior to your post op visit) Primary Care Madie Donis [Primary Care Provider] - See Instructions - Discharge Instructions Patient Printed Instructions: Open Repair of Abdominal Aortic Aneurysm (DC)
== END 2018-07-11 12:46 | disposition home or self-care (01) ==
LOC: HSDI 08:09 → HCVI 16:00 → HCPC 07-09 10:28
PROVIDERS: ADMIT Surgery; ATTEND Surgery